=== PATIENT | female | born 1935 | race Caucasian/White ===

== ENCOUNTER → 2017-10-09 05:00 | Outpatient (REF) | payer MEDICARE, SELFPAY ==
[2017-10-09 08:35] LABS: Anion Gap 11 (5-15); BUN 26 mg/dL (7-18); BUN/Creat Ratio 21.3 RATIO (10-20); Calcium,Total 9.1 mg/dL (8.5-10.1); Chloride 106 mmol/L (98-107); Creatinine, Serum 1.22 mg/dL (0.55-1.02); EST Glomerular Filtration Rate 45 mL/min (>60); Est Glom Filt Rate - Afr Amer 55 mL/min (>60); Glucose 85 mg/dL (70-110); Potassium 4.1 mmol/L (3.5-5.1); Sodium Level 141 mmol/L (136-145)
== END ==
LOC: OLS.WHLCAR 05:00
PROVIDERS: Visit Provider Family Medicine
DX: I10 Essential (primary) hypertension (principal); D64.9 Anemia, unspecified
CPT/HCPCS: 36415; 80048

== ENCOUNTER → 2018-03-09 05:00 | Outpatient (REF) | payer MEDICARE, SELFPAY ==
[2018-03-09 08:50] LABS: AST(SGOT) 25 U/L (15-37); Alanine Aminotransfer ALT/SGPT 21 U/L (13-56); Albumin, Serum 3.7 g/dL (3.2-5.0); Alkaline Phosphatase 114 U/L (45-117); Anion Gap 8 (5-15); BUN 28 mg/dL (7-18); BUN/Creat Ratio 18.3 RATIO (10-20); Chloride 106 mmol/L (98-107); Creatinine, Serum 1.53 mg/dL (0.55-1.02); EST Glomerular Filtration Rate 35 mL/min (>60); Est Glom Filt Rate - Afr Amer 42 mL/min (>60); Globulin 3.6 g/dL (2.2-4.2); Glucose 89 mg/dL (74-106); Potassium 4.3 mmol/L (3.5-5.1); Protein, Total 7.3 g/dL (6.4-8.2); Sodium Level 141 mmol/L (136-145)
== END ==
LOC: OLS.WHLCAR 05:00
PROVIDERS: Visit Provider Family Medicine
DX: D64.9 Anemia, unspecified (principal); I10 Essential (primary) hypertension
CPT/HCPCS: 36415; 80053

== ENCOUNTER → 2018-04-08 05:00 | Outpatient (REF) | payer MEDICARE, SELFPAY ==
[2018-04-08 09:33] LABS: Anion Gap 8 (5-15); BUN 26 mg/dL (7-18); BUN/Creat Ratio 19.1 RATIO (10-20); Calcium,Total 9.2 mg/dL (8.5-10.1); Chloride 106 mmol/L (98-107); Creatinine, Serum 1.36 mg/dL (0.55-1.02); EST Glomerular Filtration Rate 40 mL/min (>60); Est Glom Filt Rate - Afr Amer 48 mL/min (>60); Glucose 92 mg/dL (74-106); Potassium 4.1 mmol/L (3.5-5.1); Sodium Level 140 mmol/L (136-145)
== END ==
LOC: OLS.WHLCAR 05:00
PROVIDERS: Visit Provider Family Medicine
DX: I10 Essential (primary) hypertension (principal); D64.9 Anemia, unspecified
CPT/HCPCS: 36415; 80048

== ENCOUNTER → 2018-10-09 05:00 | Outpatient (REF) | payer MEDICARE, SELFPAY ==
[2018-10-09 07:29] LABS: Anion Gap 12 (5-15); BUN 29 mg/dL (7-18); Calcium,Total 8.8 mg/dL (8.5-10.1); Chloride 107 mmol/L (98-107); Creatinine, Serum 1.45 mg/dL (0.55-1.02); EST Glomerular Filtration Rate 37 mL/min (>60); Est Glom Filt Rate - Afr Amer 45 mL/min (>60); Glucose 96 mg/dL (74-106); Potassium 4.3 mmol/L (3.5-5.1); Sodium Level 143 mmol/L (136-145)
== END ==
LOC: OLS.WHLCAR 05:00
PROVIDERS: Visit Provider Family Medicine
DX: D64.9 Anemia, unspecified (principal); I10 Essential (primary) hypertension
CPT/HCPCS: 36415; 80048

== ENCOUNTER 2019-03-07 07:24 | Emergency (ER) | payer MEDICARE, OTHER, MEDICAID, SELFPAY ==
[2019-03-07 07:25] VITALS: BP 191/101; PULSE 84; RESP 16; TEMP 37.3; O2SAT 97; BMI 24.1
--- NOTE | 2019-03-07 07:26 | RAD_ITS ---
STUDY: X-RAY - RIGHT KNEE REASON FOR EXAM: Female, 83 years old. Right knee pain TECHNIQUE: 3 view(s) of the knee. COMPARISON: None. FINDINGS: Normal visualized distal femur. Normal visualized proximal tibia and fibula. Normal proximal tibiofibular articulation. There is severe degenerative arthrosis of the medial femorotibial compartment with severe joint space narrowing. There is moderate degenerative arthrosis of the lateral femorotibial compartment with moderate joint space narrowing. There is severe degenerative arthrosis of the patellofemoral articulation. There is no demonstrated joint effusion. The soft tissue structures are unremarkable. RAD/Knee 3 Views IMPRESSION: Degenerative changes without acute findings Electronically Signed: Savage Humphries DO at 8:28 EDT Tel , Service support ,
--- NOTE | 2019-03-07 07:26 | ED.DCSUM_ITS ---
- ER Visit Summary Date of Service: 03/07/19 Chief Complaint: Knee pain, high blood pressure History of Present Illness: The patient is a 83 F with history of hypertension and chronic left knee pain secondary to [id number] arthritis presents with increasing knee pain. Patient states that the symptoms worsen this morning. States try to get out of bed and use the bathroom, but had significant pain in the knee. She denies any trauma. She denies any fevers or chills. She states she has been taking Tylenol with little improvement. She is never had surgery on her knee. She denies any history of immunosuppression. Physical Examination: Vital signs reviewed General: Well-nourished, well-developed Head: Normocephalic, atraumatic Eyes: Pupils equal and reactive, extraocular muscles intact Neck, supple, no lymphadenopathy Heart: Regular rate and rhythm Respiratory: No distress, clear bilaterally Abdomen: Soft, nontender, nondistended, no peritoneal signs Back: Nontender Extremities: Patient has small effusion of the right knee. She does guard against range of motion. Her extension is preserved. There is no erythema. Pulses in the lower extremity are normal. Compartments are soft. Skin: Normal color no rash Neuro: Alert and oriented, no focal or lateralizing deficits Test Results: [] Emergency Department Course and Treatment: The knee itself does not appear erythematous. There is a minimal effusion. Pulses are normal. Screening labs obtained were unremarkable. Patient was given analgesics with some improvement. X-rays show rather significant arthritis in the knee. I discussed options with the patient. She agreed with plan for arthrocentesis and injection. This was done under sterile technique. I did use a lateral approach as her medial joint space was also nonexistent on imaging. Patient was given a combination of 5 cc of bupivacaine and 40 mg of Kenalog injected intra-articularly. She did have some improvement of her pain. Within 10 minutes, she was able to ambulate with her walker. I defer the patient safe for discharge. She is already on analgesics. She will follow-up with orthopedics as needed. Treatment Plan: [] Disposition: Discharge Impression: 1. Acute exacerbation of right knee arthritis This note was generated with Learning Hyperdrive[employer] software. It may contain incorrect words, spelling, and punctuation that were not noted in review of the chart prior to signing ED Disposition - Plan for ED Patient: Disposition: Home or Assisted Living Instructions: Knee Effusion Referrals: Eric Lovett III, MD [Primary Care Provider] - Messi Hermosillo MD [STAFF PHYSICIAN] -
[2019-03-07] MEDS: Morphine 4 MG/ML Syringe IV (07:41)
[2019-03-07] MEDS: Ondansetron 4 MG/2 ML Vial IV (07:42)
[2019-03-07 07:47] LABS: Absolute Lymphocyte Count 1.47 X10^3/ul (0.83-4.51); Absolute Neutrophil Count 3.1 X10^3/uL (2.0-7.7); Basophil# 0.05 X10^3/uL; Eosinophil# 0.34 X10^3/uL; Eosinophils% 6.5 % (0-5); Hematocrit 40.1 % (37-47); Hemoglobin 13.3 g/dl (12.0-15.0); Lymphocyte # 1.47 X10^3/ul (4.0); Lymphocyte % 27.9 % (19-41); Mean Corp Hgb Conc 33.2 g/gl (32-36); Mean Corpuscular Hgb 30.9 pg (27.0-32.0); Mean Corpuscular Volume 93.3 fL (81-99); Mean Platelet Vol. 9.2 fl (6.2-12.0); Monocyte# 0.33 X10^3/uL; Monocyte% 6.3 % (0-10); Neutrophil # 3.06 X10^3/uL (2.7-7.7); Neutrophil % 58.1 % (47-70); Platelet Count 182 K/mm3 (150-450); RBC Distribution Width CV 13.2 % (11.6-14.6); RBC Distribution Width SD 44.3 fl (35.1-43.9); White Blood Count 5.3 K/mm3 (4.4-11.0)
[2019-03-07 07:53] LABS: POSITIVE COUNT NO; POSITIVE DIFFERENTIAL NO; POSITIVE MORPHOLOGY NO
[2019-03-07 07:57] LABS: Anion Gap 6 (5-15); BUN 26 mg/dL (7-18); BUN/Creat Ratio 16.6 RATIO (10-20); Calcium,Total 9.5 mg/dL (8.5-10.1); Chloride 107 mmol/L (98-107); Creatinine, Serum 1.57 mg/dL (0.55-1.02); EST Glomerular Filtration Rate 34 mL/min (>60); Est Glom Filt Rate - Afr Amer 41 mL/min (>60); Estimated Creatinine Clearance 26.31 ml/min; Glucose 100 mg/dL (74-106); Potassium 3.8 mmol/L (3.5-5.1); Sodium Level 139 mmol/L (136-145)
[2019-03-07] MEDS: Triamcinolone Acetonide 40 MG/ML Vial IM (09:13)
[2019-03-07 09:19] VITALS: BP 175/79; PULSE 57; RESP 16; O2SAT 95
== END 2019-03-07 09:50 | disposition home or self-care (01) ==
LOC: ED 08:34
PROVIDERS: Emergency Provider Emergency Medicine; Family Provider Family Medicine; PCP Family Medicine
DX: M17.11 Unilateral primary osteoarthritis, right knee (principal); G89.29 Other chronic pain; I10 Essential (primary) hypertension; Z79.899 Other long term (current) drug therapy
CPT/HCPCS: 20610; 73562; 80048; 85025; 96372; 96374; 96375; 99285; A4216; J2405

== ENCOUNTER → 2019-04-23 05:00 | Outpatient (REF) | payer MEDICARE, OTHER, MEDICAID, SELFPAY ==
[2019-04-23 08:27] LABS: Anion Gap 5 (5-15); BUN 18 mg/dL (7-18); Calcium,Total 8.8 mg/dL (8.5-10.1); Chloride 112 mmol/L (98-107); Creatinine, Serum 1.06 mg/dL (0.55-1.02); EST Glomerular Filtration Rate 53 mL/min (>60); Est Glom Filt Rate - Afr Amer 64 mL/min (>60); Glucose 89 mg/dL (74-106); Potassium 4.3 mmol/L (3.5-5.1); Sodium Level 138 mmol/L (136-145)
== END ==
LOC: OLS.WHLCAR 05:00
PROVIDERS: Visit Provider Family Medicine
DX: M19.011 Primary osteoarthritis, right shoulder (principal); M17.0 Bilateral primary osteoarthritis of knee; M51.17 Intervertebral disc disorders with radiculopathy, lumbosacral region; R01.1 Cardiac murmur, unspecified; I10 Essential (primary) hypertension
CPT/HCPCS: 36415; 80048

== ENCOUNTER → 2019-10-25 04:00 | Outpatient (REF) | payer MEDICARE, OTHER, MEDICAID, SELFPAY ==
[2019-10-25 09:55] LABS: Anion Gap 5 (5-15); BUN 23 mg/dL (7-18); BUN/Creat Ratio 18.9 RATIO (10-20); Calcium,Total 8.6 mg/dL (8.5-10.1); Chloride 109 mmol/L (98-107); Creatinine, Serum 1.22 mg/dL (0.55-1.02); EST Glomerular Filtration Rate 45 mL/min (>60); Est Glom Filt Rate - Afr Amer 54 mL/min (>60); Glucose 82 mg/dL (74-106); Potassium 3.6 mmol/L (3.5-5.1); Sodium Level 143 mmol/L (136-145)
== END ==
LOC: OLS.WHLCAR 04:00
PROVIDERS: PCP Family Medicine; Visit Provider Family Medicine
DX: I10 Essential (primary) hypertension (principal); M19.011 Primary osteoarthritis, right shoulder; M17.0 Bilateral primary osteoarthritis of knee; M51.17 Intervertebral disc disorders with radiculopathy, lumbosacral region; R01.1 Cardiac murmur, unspecified
CPT/HCPCS: 36415; 80048

== ENCOUNTER → 2019-10-30 15:50 | Outpatient (REF) | payer MEDICARE, OTHER, MEDICAID, SELFPAY | LOC: OLS.WHLCAR 15:50 | PROVIDERS: PCP Family Medicine; Visit Provider Family Medicine | DX: R19.7 Diarrhea, unspecified (principal); M19.011 Primary osteoarthritis, right shoulder; M17.0 Bilateral primary osteoarthritis of knee; M51.17 Intervertebral disc disorders with radiculopathy, lumbosacral region; R01.1 Cardiac murmur, unspecified | CPT/HCPCS: 83630; 87177; 87209; 87493; 87506 ==

== ENCOUNTER → 2020-04-24 04:00 | Outpatient (REF) | payer MEDICARE, OTHER, MEDICAID, SELFPAY ==
[2020-04-24 07:21] LABS: Anion Gap 6 (5-15); BUN 23 mg/dL (7-18); BUN/Creat Ratio 16.2 RATIO (10-20); Calcium,Total 9.2 mg/dL (8.5-10.1); Chloride 107 mmol/L (98-107); Creatinine, Serum 1.42 mg/dL (0.55-1.02); EST Glomerular Filtration Rate 38 mL/min (>60); Est Glom Filt Rate - Afr Amer 46 mL/min (>60); Glucose 93 mg/dL (74-106); Potassium 4.1 mmol/L (3.5-5.1); Sodium Level 138 mmol/L (136-145)
== END ==
LOC: OLS.WHLCAR 04:00
PROVIDERS: PCP Family Medicine; Visit Provider Family Medicine
DX: I10 Essential (primary) hypertension (principal); M19.011 Primary osteoarthritis, right shoulder; M17.0 Bilateral primary osteoarthritis of knee; M51.17 Intervertebral disc disorders with radiculopathy, lumbosacral region; R01.1 Cardiac murmur, unspecified
CPT/HCPCS: 36415; 80048

== ENCOUNTER → 2020-05-04 05:14 | Outpatient (REF) | payer MEDICARE, OTHER, MEDICAID, SELFPAY ==
[2020-05-04 08:46] LABS: Anion Gap 9 (5-15); BUN 26 mg/dL (7-18); BUN/Creat Ratio 16.2 RATIO (10-20); Chloride 101 mmol/L (98-107); EST Glomerular Filtration Rate 33 mL/min (>60); Est Glom Filt Rate - Afr Amer 40 mL/min (>60); Glucose 86 mg/dL (74-106); Sodium Level 136 mmol/L (136-145)
== END ==
LOC: OLS.WHLBEN 05:14
PROVIDERS: PCP Family Medicine; Referring Provider Family Medicine; Visit Provider Family Medicine
DX: I10 Essential (primary) hypertension (principal); M19.011 Primary osteoarthritis, right shoulder; M17.0 Bilateral primary osteoarthritis of knee; M51.17 Intervertebral disc disorders with radiculopathy, lumbosacral region; R01.1 Cardiac murmur, unspecified
CPT/HCPCS: 36415; 80048

== ENCOUNTER → 2020-08-04 05:00 | Outpatient (REF) | payer MEDICARE, OTHER, MEDICAID, SELFPAY ==
[2020-08-04 08:27] LABS: Anion Gap 6 (5-15); BUN 29 mg/dL (7-18); BUN/Creat Ratio 18.5 RATIO (10-20); Calcium,Total 8.9 mg/dL (8.5-10.1); Chloride 107 mmol/L (98-107); Creatinine, Serum 1.57 mg/dL (0.55-1.02); EST Glomerular Filtration Rate 34 mL/min (>60); Est Glom Filt Rate - Afr Amer 41 mL/min (>60); Glucose 83 mg/dL (74-106); Potassium 3.9 mmol/L (3.5-5.1); Sodium Level 140 mmol/L (136-145)
== END ==
LOC: OLS.WHLBEN 05:00
PROVIDERS: PCP Family Medicine; Referring Provider Family Medicine; Visit Provider Family Medicine
DX: I10 Essential (primary) hypertension (principal); M19.011 Primary osteoarthritis, right shoulder; M17.0 Bilateral primary osteoarthritis of knee; M51.17 Intervertebral disc disorders with radiculopathy, lumbosacral region; R01.1 Cardiac murmur, unspecified
CPT/HCPCS: 36415; 80048

== ENCOUNTER 2020-08-25 11:47 | Emergency (ER) | payer MEDICARE, OTHER, MEDICAID, SELFPAY ==
[2020-08-25 11:47] VITALS: BP 151/72; PULSE 75; RESP 16; TEMP 36.5; O2SAT 97; BMI 24.5
[2020-08-25 11:51] VITALS: BP 151/72; PULSE 76; RESP 13; TEMP 36.5; O2SAT 97
--- NOTE | 2020-08-25 12:12 | ED.VIS.GEN ---
History of Present Illness Chief Complaint: Nausea/Vomiting Onset: Today Current Severity: Mild Maximum Severity: Moderate Narrative: Patient presents from [facility] secondary to nausea, vomiting, and diarrhea. She had tested positive for Covid on August 08. She states she had nausea and mild cough. She felt like she was getting better until today when she developed vomiting and diarrhea. She denies fever. She denies abdominal pain. - Past Medical History (1) Arthritis Status: Chronic (2) Depression Status: Chronic Past Medical History - Allergies and Home Meds Allergies/Adverse Reactions: Allergies acetaminophen [From Darvocet-N] Allergy (Verified 08/25/20 13:12) Unknown amlodipine [From Norvasc] Allergy (Verified 08/25/20 13:12) Upset Stomach celecoxib [From Celebrex] Allergy (Verified 08/25/20 13:12) Unknown choline salicylate Allergy (Verified 08/25/20 13:12) Unknown hydrocodone [From Vicodin] Allergy (Verified 08/25/20 13:12) Unknown magnesium salicylate Allergy (Verified 08/25/20 13:12) Unknown naproxen [From Naprosyn] Allergy (Verified 08/25/20 13:12) Upset Stomach paroxetine [From Paxil] Allergy (Verified 08/25/20 13:12) Unknown propoxyphene [From Darvocet-N] Allergy (Verified 08/25/20 13:12) Unknown verapamil Allergy (Verified 08/25/20 13:12) Unknown Primary Care Physician: Eric Lovett III, MD [Primary Care Provider] - Prior records reviewed: Yes Lives: [facility] Smoking Status: Never smoker Review of Systems General: Denies: Chills, Fever Eyes: Denies: Visual changes - bilaterally Cardiovascular: Denies: Chest pain Respiratory: Denies: Dyspnea, Cough Gastrointestinal: Reports: Nausea, Vomiting, Diarrhea. Denies: Abdominal pain Genitourinary: Denies: Dysuria Musculoskeletal: Denies: Swelling, Extremity Pain Skin: Denies: Rash Hematologic: Denies: Easy bruising, Easy bleeding Allergy: Denies: Uticaria Physical Exam Vital Signs/Narrative: Vital Signs Temp Pulse Resp BP Pulse Ox 08/25/20 11:51 97.7 F L 76 13 151/72 H 97 08/25/20 11:47 97.7 F L 75 16 151/72 H 97 Inital Vital Signs reviewed: Yes General: Well nourished, Well developed Head: Normocephalic ENT: Moist mucous membranes Neck: Supple Cardiovascular: Regular rate, Regular rhythm Respiratory: No distress, CTA bilaterally Abdomen: Soft, Nontender, Normal bowel sounds Skin: Normal color Neurological: Alert, Oriented x3 Psychological: Normal affect Diagnostic/Tx/Re-eval Laboratory Results 08/25/20 08/25/20 08/25/20 12:45 12:45 13:45 WBC 11.7 H RBC 4.35 Hgb 13.4 Hct 40.6 MCV 93.3 MCH 30.8 MCHC 33.0 RDW Std Deviation 43.6 RDW Coeff of Clarissa 12.8 Plt Count 212 MPV 9.5 Immature Gran % (Auto) 0.400 Neut % (Auto) 82.9 H Lymph % (Auto) 9.8 L [place] % (Auto) 5.0 Eos % (Auto) 1.5 Baso % (Auto) 0.4 Absolute Neuts (auto) 9.7 H Absolute Lymphs (auto) 1.15 Nucleated RBC % 0 Sodium 137 Potassium 4.6 Chloride 105 Carbon Dioxide 26.0 Anion Gap 6 BUN 35 H Creatinine 1.67 H Estim Creat Clear Calc 21.48 Est GFR (MDRD) Af Amer 38 L Est GFR (MDRD) Non-Af 31 L BUN/Creatinine Ratio 21.0 H Glucose 110 H Calcium 9.6 Total Bilirubin 0.40 Direct Bilirubin 0.12 AST 26 ALT 25 Alkaline Phosphatase 139 H Total Protein 7.9 Albumin 3.9 Globulin 4.0 Urine Color Yellow Urine Clarity Clear Urine pH 5.0 Ur Specific Winston 1.015 Urine Protein 15 H Urine Glucose (UA) Normal Urine Ketones Negative Urine Occult Blood Negative Urine Nitrite Negative Urine Bilirubin Negative Urine Urobilinogen Normal Ur Leukocyte Esterase Negative Urine RBC 0 SEEN Urine WBC 0 SEEN Ur Squamous Epith Cells 0-5 SEEN Urine Bacteria RARE Urine Mucus RARE - Medical Decision Making Patient was given IV Zofran and does feel improved from a nausea standpoint. She states she still feels very cold and shaky. She be given a dose of Imodium. Her lab work at this time is unremarkable. Urine is clear. Patient does feel that she can care for herself at her assisted living center. It looks like on paperwork she had been prescribed Zofran and Imodium, however states she did not get that today. I will give her new prescriptions and we will call the facility to ensure they are able to help provide this for her. ED Disposition - Plan for ED Patient: Disposition: Home or Assisted Living Diagnosis: Gastroenteritis Instructions: ED Gastroenteritis, Viral (Adult) Prescriptions: Loperamide [Imodium] 2 mg PO Q6H PRN PRN #10 capsule PRN Reason: Diarrhea Ondansetron [Zofran Odt] 4 mg PO Q8H PRN PRN #10 tablet PRN Reason: Nausea Referrals: Eric Lovett III, MD [Primary Care Provider] - 3-5 Days if not improving
[2020-08-25 12:58] LABS: Absolute Lymphocyte Count 1.15 X10^3/uL (0.83-4.51); Absolute Neutrophil Count 9.7 X10^3/uL (2.0-7.7); Basophil# 0.05 X10^3/uL; Basophil% 0.4 % (0-1); Eosinophil# 0.18 X10^3/uL; Eosinophils% 1.5 % (0-5); Hematocrit 40.6 % (37-47); Hemoglobin 13.4 g/dL (12.0-15.0); Lymphocyte # 1.15 X10^3/ul (4.0); Lymphocyte % 9.8 % (19-41); Mean Corpuscular Hgb 30.8 pg (27.0-32.0); Mean Corpuscular Volume 93.3 fL (81-99); Mean Platelet Vol. 9.5 fl (6.2-12.0); Monocyte# 0.59 X10^3/uL; NRBC Flagged by Analyzer 0 % (0-5); Neutrophil # 9.67 X10^3/uL (2.7-7.7); Neutrophil % 82.9 % (47-70); Platelet Count 212 K/mm3 (150-450); RBC Distribution Width CV 12.8 % (11.6-14.6); RBC Distribution Width SD 43.6 fl (35.1-43.9); Red Blood Count 4.35 M/mm3 (4.2-5.4); White Blood Count 11.7 K/mm3 (4.4-11.0)
[2020-08-25] MEDS: Ondansetron 4 MG/2 ML Vial IV (12:59)
[2020-08-25 13:05] VITALS: BP 137/70; PULSE 69; RESP 16; TEMP 36.6; O2SAT 97
[2020-08-25 13:25] LABS: AST(SGOT) 26 U/L (15-37); Alanine Aminotransfer ALT/SGPT 25 U/L (13-56); Albumin, Serum 3.9 g/dL (3.2-5.0); Alkaline Phosphatase 139 U/L (45-117); Anion Gap 6 (5-15); BUN 35 mg/dL (7-18); Bilirubin, Direct 0.12 mg/dL (0.00-0.30); Calcium,Total 9.6 mg/dL (8.5-10.1); Chloride 105 mmol/L (98-107); Creatinine, Serum 1.67 mg/dL (0.55-1.02); EST Glomerular Filtration Rate 31 mL/min (>60); Est Glom Filt Rate - Afr Amer 38 mL/min (>60); Estimated Creatinine Clearance 21.48 ml/min; Glucose 110 mg/dL (74-106); Potassium 4.6 mmol/L (3.5-5.1); Protein, Total 7.9 g/dL (6.4-8.2); Sodium Level 137 mmol/L (136-145)
[2020-08-25 13:57] LABS: Red Blood Cells-Urine 0 SEEN /hpf (0-5); White Blood Cells 0 SEEN /hpf (0-5)
[2020-08-25 14:02] LABS: Color, Urine Yellow (Yellow); Glucose, Dipstick Normal (Normal); Ketone-Dipstick Negative (Negative); Leukocyte Esterase-Dipstick Negative /ul (Negative); Nitrite-Dipstick Negative (Negative); Occult Blood-Urine Negative /ul (Negative); Protein-Dipstick 15 mg/dl (Negative); Specific Gravity, Urine 1.015 (1.002-1.030); Urine Bilirubin Dipstick Negative (Negative); Urine Clarity Clear (Clear); Urine Urobilinogen Normal (Normal)
[2020-08-25 14:10] LABS: Bacteria RARE /hpf (None Seen); Mucous, Urine RARE /hpf (<or=2+); Squamous Epithelial Cells - UA 0-5 SEEN /hpf (5-10)
--- NOTE | 2020-08-25 15:06 | ED.RN ---
SPOKE TO SHYANN AT [facility], SHE STATES THEY ARE ABLE TO TAKE PT BACK, WILL GIVE MORE ASSISTANCE, WILL GIVE ZOFRAN AND DIARRHEA MEDS. NURSE STATES THEY DID NOT ATTEMPT PO ZOFRAN PT WAS VOMITING. NURSE VOICES UNDERSTANDING TO GIVE PT PO ZOFRAN DOSE SOON SHE RETURNS NAUSEA IS CURRENTLY CONTROLLED. WILL GET RX FOR ODT MEDS FILLED ROMANA.
[2020-08-25 15:10] VITALS: BP 156/67; PULSE 67; RESP 12; O2SAT 97
[2020-08-25 15:58] VITALS: BP 169/60; PULSE 91; RESP 17; O2SAT 95
== END 2020-08-25 15:59 | disposition home or self-care (01) ==
PROVIDERS: Emergency Provider Emergency Medicine; PCP Family Medicine
DX: K52.9 Noninfective gastroenteritis and colitis, unspecified (principal); M19.90 Unspecified osteoarthritis, unspecified site
CPT/HCPCS: 80048; 80076; 81001; 85025; 96374; 99285; J2405

== ENCOUNTER → 2020-11-02 05:00 | Outpatient (REF) | payer MEDICARE, OTHER, MEDICAID, SELFPAY ==
[2020-11-02 07:38] LABS: Anion Gap 6 (5-15); BUN 26 mg/dL (7-18); BUN/Creat Ratio 17.8 RATIO (10-20); Chloride 103 mmol/L (98-107); Creatinine, Serum 1.46 mg/dL (0.55-1.02); EST Glomerular Filtration Rate 36 mL/min (>60); Est Glom Filt Rate - Afr Amer 44 mL/min (>60); Glucose 85 mg/dL (74-106); Sodium Level 137 mmol/L (136-145)
== END ==
LOC: OLS.WHLTSB 05:00
PROVIDERS: PCP Family Medicine; Visit Provider Family Medicine
DX: I10 Essential (primary) hypertension (principal); M19.011 Primary osteoarthritis, right shoulder; M17.0 Bilateral primary osteoarthritis of knee; M51.17 Intervertebral disc disorders with radiculopathy, lumbosacral region; R01.1 Cardiac murmur, unspecified
CPT/HCPCS: 36415; 80048

== ENCOUNTER → 2021-03-21 15:13 | Outpatient (CLI) | payer MEDICARE, MEDICAID, OTHER, SELFPAY ==
[2021-03-21 16:59] LABS: Probe Check PASS; Specimen Processing Control PASS
== END ==
PROVIDERS: PCP Family Medicine; Referring Provider Family Medicine; Visit Provider Family Medicine
DX: Z03.818 Encounter for observation for suspected exposure to other biological agents ruled out (principal)
CPT/HCPCS: 87635; U0005; U0003

== ENCOUNTER → 2021-05-03 05:00 | Outpatient (REF) | payer MEDICARE, OTHER, MEDICAID, SELFPAY ==
[2021-05-03 08:25] LABS: Absolute Lymphocyte Count 1.93 X10^3/uL (0.83-4.51); Absolute Neutrophil Count 2.4 X10^3/uL (2.0-7.7); Basophil# 0.05 X10^3/uL; Basophil% 0.9 % (0-1); Eosinophil# 0.51 X10^3/uL; Eosinophils% 9.3 % (0-5); Hematocrit 31.7 % (37-47); Hemoglobin 10.4 g/dL (12.0-15.0); Lymphocyte # 1.93 X10^3/ul (0.83-4.51); Mean Corp Hgb Conc 32.8 g/dL (32-36); Mean Corpuscular Hgb 30.8 pg (27.0-32.0); Mean Corpuscular Volume 93.8 fL (81-99); Mean Platelet Vol. 9.6 fl (6.2-12.0); Monocyte# 0.58 X10^3/uL; Monocyte% 10.5 % (0-10); NRBC Flagged by Analyzer 0 % (0-5); Neutrophil # 2.42 X10^3/uL (2.7-7.7); Neutrophil % 43.9 % (47-70); Platelet Count 198 K/mm3 (150-450); RBC Distribution Width CV 12.6 % (11.6-14.6); RBC Distribution Width SD 43.4 fl (35.1-43.9); Red Blood Count 3.38 M/mm3 (4.2-5.4); White Blood Count 5.5 K/mm3 (4.4-11.0)
[2021-05-03 08:47] LABS: Anion Gap 8 (5-15); BUN 34 mg/dL (7-18); BUN/Creat Ratio 21.4 RATIO (10-20); Calcium,Total 8.9 mg/dL (8.5-10.1); Chloride 103 mmol/L (98-107); Creatinine, Serum 1.59 mg/dL (0.55-1.02); EST Glomerular Filtration Rate 33 mL/min (>60); Est Glom Filt Rate - Afr Amer 40 mL/min (>60); Glucose 86 mg/dL (74-106); Potassium 4.1 mmol/L (3.5-5.1); Sodium Level 137 mmol/L (136-145)
== END ==
LOC: OLS.WHLTSB 05:00
PROVIDERS: PCP Family Medicine; Visit Provider Family Medicine
DX: I10 Essential (primary) hypertension (principal); D64.9 Anemia, unspecified; M19.011 Primary osteoarthritis, right shoulder; M17.0 Bilateral primary osteoarthritis of knee; M51.17 Intervertebral disc disorders with radiculopathy, lumbosacral region; R01.1 Cardiac murmur, unspecified
CPT/HCPCS: 36415; 80048; 85025

== ENCOUNTER 2021-11-01 04:00 | Outpatient (REF) | payer MEDICARE, OTHER, SELFPAY ==
[2021-11-01 08:34] LABS: Anion Gap 7 (5-15); BUN 31 mg/dL (7-18); BUN/Creat Ratio 20.9 RATIO (10-20); Calcium,Total 8.7 mg/dL (8.5-10.1); Chloride 105 mmol/L (98-107); Creatinine, Serum 1.48 mg/dL (0.55-1.02); EST Glomerular Filtration Rate 36 mL/min (>60); Est Glom Filt Rate - Afr Amer 43 mL/min (>60); Glucose 84 mg/dL (74-106); Potassium 4.3 mmol/L (3.5-5.1); Sodium Level 138 mmol/L (136-145)
== END 2021-11-01 23:59 | disposition home or self-care (01) ==
LOC: OLS.WHLTSB 04:00
PROVIDERS: Visit Provider Family Medicine
DX: I10 Essential (primary) hypertension (principal); M15.9 Polyosteoarthritis, unspecified; M19.011 Primary osteoarthritis, right shoulder; M17.0 Bilateral primary osteoarthritis of knee; M51.17 Intervertebral disc disorders with radiculopathy, lumbosacral region; R01.1 Cardiac murmur, unspecified
CPT/HCPCS: 36415; 80048

== ENCOUNTER → 2022-05-02 | Outpatient (REF) | payer MEDICARE, OTHER, SELFPAY ==
[2022-05-02 08:21] LABS: Absolute Lymphocyte Count 1.68 X10^3/uL (0.83-4.51); Absolute Neutrophil Count 2.5 X10^3/uL (2.0-7.7); Basophil# 0.04 X10^3/uL; Basophil% 0.8 % (0-1); Eosinophil# 0.17 X10^3/uL; Eosinophils% 3.4 % (0-5); Hematocrit 33.2 % (37-47); Hemoglobin 11.1 g/dL (12.0-15.0); Lymphocyte # 1.68 X10^3/ul (0.83-4.51); Mean Corp Hgb Conc 33.4 g/dL (32-36); Mean Corpuscular Hgb 30.9 pg (27.0-32.0); Mean Corpuscular Volume 92.5 fL (81-99); Mean Platelet Vol. 9.2 fl (6.2-12.0); Monocyte# 0.51 X10^3/uL; Monocyte% 10.3 % (0-10); NRBC Flagged by Analyzer 0 % (0-5); Neutrophil # 2.53 X10^3/uL (2.7-7.7); Neutrophil % 51.3 % (47-70); Platelet Count 198 K/mm3 (150-450); RBC Distribution Width CV 12.2 % (11.6-14.6); RBC Distribution Width SD 41.7 fl (35.1-43.9); Red Blood Count 3.59 M/mm3 (4.2-5.4); White Blood Count 4.9 K/mm3 (4.4-11.0)
[2022-05-02 08:35] LABS: Anion Gap 5 (5-15); BUN 30 mg/dL (7-18); BUN/Creat Ratio 23.1 RATIO (10-20); Calcium,Total 9.3 mg/dL (8.5-10.1); Chloride 106 mmol/L (98-107); EST Glomerular Filtration Rate 41 mL/min (>60); Est Glom Filt Rate - Afr Amer 50 mL/min (>60); Glucose 86 mg/dL (74-106); Potassium 4.3 mmol/L (3.5-5.1); Sodium Level 137 mmol/L (136-145)
== END ==
LOC: OLS.WHLTSB 05:00
PROVIDERS: Visit Provider Family Medicine
DX: D64.9 Anemia, unspecified (principal); M15.9 Polyosteoarthritis, unspecified; M19.011 Primary osteoarthritis, right shoulder; M17.0 Bilateral primary osteoarthritis of knee; M51.17 Intervertebral disc disorders with radiculopathy, lumbosacral region; R01.1 Cardiac murmur, unspecified; I10 Essential (primary) hypertension
CPT/HCPCS: 36415; 80048; 85025

== ENCOUNTER → 2022-10-31 | Outpatient (REF) | payer MEDICARE, OTHER, MEDICAID, SELFPAY ==
[2022-10-31 08:55] LABS: Anion Gap 9 (5-15); BUN 34 mg/dL (7-18); BUN/Creat Ratio 22.5 RATIO (10-20); Calcium,Total 9.3 mg/dL (8.5-10.1); Chloride 101 mmol/L (98-107); Creatinine, Serum 1.51 mg/dL (0.55-1.02); EST Glomerular Filtration Rate 35 mL/min (>60); Est Glom Filt Rate - Afr Amer 42 mL/min (>60); Glucose 92 mg/dL (74-106); Potassium 4.3 mmol/L (3.5-5.1); Sodium Level 134 mmol/L (136-145)
== END ==
LOC: OLS.WHLTSB 05:00
PROVIDERS: PCP Internal Medicine; Visit Provider Internal Medicine
DX: I10 Essential (primary) hypertension (principal); M15.9 Polyosteoarthritis, unspecified; M19.011 Primary osteoarthritis, right shoulder; M17.0 Bilateral primary osteoarthritis of knee; M51.17 Intervertebral disc disorders with radiculopathy, lumbosacral region; R01.1 Cardiac murmur, unspecified
CPT/HCPCS: 36415; 80048

== ENCOUNTER 2022-11-25 10:51 | Day surgery (SDC) | payer MEDICARE, MEDICAID, SELFPAY ==
[2022-11-25 11:28] VITALS: BP 186/91; PULSE 78; RESP 16; TEMP 36.8; O2SAT 97; BMI 23.2
--- NOTE | 2022-11-25 11:30 | RAD_ITS ---
PROCEDURE: Caudal block. DATE OF EXAMINATION: November 25, 2022. INDICATION: Female, 87 years old. Low back pain. FLUOROSCOPY TIME (if supplied): (4 seconds) minutes/seconds. 2 images were submitted. RADIATION DOSAGE (If Supplied By Facility): ( 1.97 ) mGycm RAD/Fluor Guidance for Spine Inj IMPRESSION: Intraoperative imaging provided for caudal block. Electronically Signed: Demarco Ennis MD at 13:39 EDT ,
[2022-11-25] MEDS: Lactated Ringers 1,000 ML 15 ML IV (11:32)
[2022-11-25] MEDS: 0.9% Normal Saline (Pres. free 10 ML Vial (12:00)
[2022-11-25] MEDS: MethylPREDNISolone Acetate 80 MG/ML Vial (12:00)
[2022-11-25] MEDS: Lidocaine 1% (5 ml sdv) 5 ML Vial (12:00)
--- NOTE | 2022-11-25 12:03 | OP.PCM_ITS ---
Report of Operation Date of Procedure: 11/25/22 Pre-Operative Diagnosis: Lumbosacral radiculopathy, lumbosacral degenerative di sc disease, lumbosacral spinal stenosis Post-Operative Diagnosis: Lumbosacral radiculopathy, lumbosacral degenerative disc disease, lumbosacral spinal stenosis Surgery/Procedure Performed:: Diagnostic/therapeutic caudal epidural steroid injection under fluoroscopic guidance Type of Anesthesia: MAC Estimated Blood Loss (mL): Minimal Description of Procedure: DESCRIPTION OF PROCEDURE: History and physical of today was reviewed. Risks and benefits of the procedure were explained. The patient understood and agreed to proceed. Informed consent was obtained. IV inserted per routine protocol. The patient was taken to the operating room and placed in the prone position with a pillow positioned underneath the abdomen. The lower back and tailbone area was prepped and draped in a sterile fashion using iodine x3. Under fluoroscopy guidance on a lateral view, the caudal space was identified. The skin and subcutaneous tissue was anesthetized with approximately 3 mL of 1% lidocaine using a 25-gauge regular needle. Under direct visualization with fluoroscopy, using a 22-gauge 3-1/2-inch spinal needle, the needle was advanced via the skin through the sacral hiatus. The tip of the needle was passed through the sacrococcygeal ligament and advanced to approximately S4 area. After negative aspiration of blood or CSF, a total of 3 mL of contrast was injected to confirm correct placement of the needle as well as cephalad spread. The spread was followed to approximately L5 area. After confirmation on AP as well as lateral view and repeated negative aspiration, a total of 15 mL of preservative-free 0.125% Marcaine with 80 mg of Depo-Medrol was injected easily. The needle was then removed intact. The patient experienced no sign or symptoms of intrathecal or intravascular injection. The patient experienced no paresthesia. The procedure was completed without any apparent difficulty or any complications. The patient appeared to tolerate it well. ASSESSMENT AND PLAN: This is a 87-year-old female with lumbosacral radiculopathy, lumbosacral degenerative disc disease, lumbosacral spinal stenosis status post diagnostic/therapeutic caudal epidural steroid injection, patient will continue her current medications, patient will follow in approximately 2 weeks for reevaluation. Complications None
[2022-11-25 12:07] VITALS: BP 100/41; BP 186/91; PULSE 74; RESP 16; TEMP 36.1; O2SAT 98
[2022-11-25 12:15] VITALS: BP 113/66; BP 186/91; PULSE 73; RESP 16; O2SAT 98
[2022-11-25 12:22] VITALS: BP 155/140; BP 186/91; PULSE 73; RESP 16; O2SAT 97
[2022-11-25 12:25] VITALS: BP 152/76; BP 186/91; PULSE 74; RESP 16; TEMP 36.9; O2SAT 97
--- NOTE | 2022-11-25 12:51 | SUR.PHASEII ---
THIS NURSE CALLED REPORT TO RACHID PT NURSE AT [facility], PT TRANSPORT WAS CALLED [phone] AND D/C INSTRUCTIONS WERE SENT WITH VALE BACK TO [facility].
[2022-11-25 12:53] VITALS: BP 186/91
== END 2022-11-25 13:10 | disposition home or self-care (01) ==
LOC: SDC 10:55 → AC 10:57
PROVIDERS: PCP Internal Medicine; Referring Provider Anesthesiology Pain Medicine; Visit Provider Anesthesiology Pain Medicine
PROC: 3E0S3BZ Introduction of Anesthetic Agent into Epidural Space, Percutaneous Approach (ICD-10-PCS; CPT 62282; principal; 2022-11-25 12:25)
DX: M51.17 Intervertebral disc disorders with radiculopathy, lumbosacral region (principal); M48.07 Spinal stenosis, lumbosacral region; F32.A Depression, unspecified; K21.9 Gastro-esophageal reflux disease without esophagitis; I10 Essential (primary) hypertension; Z79.899 Other long term (current) drug therapy
CPT/HCPCS: 62323; 01992; 64483; 77003; J7120; J3490

== ENCOUNTER → 2023-05-01 | Outpatient (REF) | payer MEDICARE, OTHER, MEDICAID, SELFPAY ==
[2023-05-01 10:23] LABS: Absolute Lymphocyte Count 1.47 X10^3/uL (0.83-4.51); Absolute Neutrophil Count 1.8 X10^3/uL (2.0-7.7); Basophil# 0.05 X10^3/uL; Basophil% 1.2 % (0-1); Eosinophil# 0.16 X10^3/uL; Hematocrit 31.9 % (37-47); Lymphocyte # 1.47 X10^3/ul (0.83-4.51); Lymphocyte % 36.5 % (19-41); Mean Corp Hgb Conc 31.3 g/dL (32-36); Mean Corpuscular Hgb 31.8 pg (27.0-32.0); Mean Corpuscular Volume 101.6 fL (81-99); Mean Platelet Vol. 9.3 fl (6.2-12.0); Monocyte# 0.58 X10^3/uL; Monocyte% 14.4 % (0-10); NRBC Flagged by Analyzer 0 % (0-5); Neutrophil # 1.76 X10^3/uL (2.7-7.7); Neutrophil % 43.7 % (47-70); Platelet Count 190 K/mm3 (150-450); RBC Distribution Width CV 12.1 % (11.6-14.6); RBC Distribution Width SD 45.6 fl (35.1-43.9); Red Blood Count 3.14 M/mm3 (4.2-5.4)
[2023-05-01 10:25] LABS: Anion Gap 5 (5-15); BUN 30 mg/dL (7-18); BUN/Creat Ratio 21.3 RATIO (10-20); Calcium,Total 9.1 mg/dL (8.5-10.1); Chloride 108 mmol/L (98-107); Creatinine, Serum 1.41 mg/dL (0.55-1.02); EST Glomerular Filtration Rate 38 mL/min (>60); Est Glom Filt Rate - Afr Amer 46 mL/min (>60); Glucose 88 mg/dL (74-106); Potassium 4.1 mmol/L (3.5-5.1); Sodium Level 138 mmol/L (136-145)
== END ==
LOC: OLS.WHLTSB 05:00
PROVIDERS: PCP Internal Medicine; Visit Provider Internal Medicine
DX: I10 Essential (primary) hypertension (principal)
CPT/HCPCS: 36415; 80048; 85025

== ENCOUNTER → 2023-10-30 | Outpatient (REF) | payer MEDICARE, OTHER, MEDICAID, SELFPAY ==
--- OUTSIDE RECORDS SUMMARY | 2023-10-30 05:06 | XMS RPT_ITS | CCD ---
Author Name Unknown Address [facility] [place] [address] Organization [facility] Results Test Name Value Interpretation Reference Range Facil ity Summary Purpose Family History No Family History Records Found Advance Directives No Advanced Directives Records Found Additional Source Comments INFORMATION SOURCE (unrecogn ized section and content) FOR RECORDS PERTAINING TO PATIENTS WHO ARE OR HAVE BEEN ENROLLED IN A CHEMICAL DEPENDENCY/SUBSTANCEABUSE PROGRAM, SOME INFORMATION MAY BE OMITTED. This clinical summary was aggregated from multiple sources. Caution should be exercised in using it in the provision of clinical care. This summary normalizes information from multiple sources, and as a consequence, information in this document may materially change the coding, format and clinical context of patient data. In addition, data may be omitted in some cases. CLINICAL DECISIONS SHOULD BE BASED ON THE PRIMARY CLINICAL RECORDS. [employer] provides no warranty or guarantee of the accuracy or completeness of information in this document.
[2023-10-30 08:46] LABS: Anion Gap 4 (5-15); BUN 41 mg/dL (7-18); BUN/Creat Ratio 26.8 RATIO (10-20); Calcium,Total 9.1 mg/dL (8.5-10.1); Chloride 110 mmol/L (98-107); Creatinine, Serum 1.53 mg/dL (0.55-1.02); EST Glomerular Filtration Rate 34 mL/min (>60); Est Glom Filt Rate - Afr Amer 41 mL/min (>60); Glucose 93 mg/dL (74-106); Potassium 4.5 mmol/L (3.5-5.1); Sodium Level 139 mmol/L (136-145)
== END ==
LOC: OLS.WHLTSB 05:00
PROVIDERS: PCP Internal Medicine; Visit Provider Internal Medicine
DX: I10 Essential (primary) hypertension (principal); M15.9 Polyosteoarthritis, unspecified; M19.011 Primary osteoarthritis, right shoulder
CPT/HCPCS: 36415; 80048

== ENCOUNTER → 2023-11-10 | Outpatient (REF) | payer MEDICARE, OTHER, MEDICAID, SELFPAY ==
[2023-11-10 07:32] LABS: Anion Gap 6 (5-15); BUN 44 mg/dL (7-18); BUN/Creat Ratio 25.9 RATIO (10-20); Calcium,Total 9.4 mg/dL (8.5-10.1); Chloride 108 mmol/L (98-107); EST Glomerular Filtration Rate 30 mL/min (>60); Est Glom Filt Rate - Afr Amer 37 mL/min (>60); Glucose 89 mg/dL (74-106); Potassium 4.2 mmol/L (3.5-5.1); Sodium Level 138 mmol/L (136-145)
== END ==
LOC: OLS.WHLTSB 05:00
PROVIDERS: PCP Internal Medicine; Visit Provider Internal Medicine
DX: I10 Essential (primary) hypertension (principal)
CPT/HCPCS: 36415; 80048

== ENCOUNTER 2024-01-26 09:38 | Day surgery (SDC) | payer MEDICARE, MEDICAID, SELFPAY ==
[2024-01-26 10:12] VITALS: BP 187/72; PULSE 77; RESP 16; TEMP 37.2; O2SAT 97
[2024-01-26] MEDS: Lactated Ringers 1,000 ML 15 ML IV (10:18)
--- NOTE | 2024-01-26 11:11 | RAD_ITS ---
PROCEDURE: Fluoroscopy in operating room. DATE OF EXAMINATION: INDICATION: Female, 88 years old. Low back pain, pelvic pain. PHYSICIAN: FLUOROSCOPY TIME (if supplied): (0:04) minutes/seconds Technique: 4 seconds of fluoroscopy of the sacrum was utilized operating room during epidural steroid injection and a single image is similar for interpretation. RAD/Fluor Guidance for Spine Inj IMPRESSION: Fluoroscopy during epidural steroid injection. Electronically Signed: Thomas Ruiz MD at 19:07 EDT ,
[2024-01-26] MEDS: MethylPREDNISolone Acetate 80 MG/ML Vial (11:19)
[2024-01-26] MEDS: Lidocaine 1% (5 ml sdv) 5 ML Vial (11:19)
[2024-01-26] MEDS: 0.9% Normal Saline (Pres. free 10 ML Vial (11:19)
[2024-01-26 11:26] VITALS: BP 138/57; BP 187/72; PULSE 66; RESP 16; TEMP 36.3; O2SAT 96
--- NOTE | 2024-01-26 11:26 | OP.PCM_ITS ---
Report of Operation Date of Procedure: 01/26/24 Pre-Operative Diagnosis: Lumbosacral radiculopathy, lumbosacral degenerative di sc disease, lumbosacral spinal stenosis Post-Operative Diagnosis: Lumbosacral radiculopathy, lumbosacral degenerative disc disease, lumbosacral spinal stenosis Surgery/Procedure Performed:: Diagnostic/therapeutic caudal epidural steroid injection under fluoroscopic guidance Type of Anesthesia: MAC Estimated Blood Loss (mL): Minimal Description of Procedure: DESCRIPTION OF PROCEDURE: History and physical of today was reviewed. Risks and benefits of the procedure were explained. The patient understood and agreed to proceed. Informed consent was obtained. IV inserted per routine protocol. The patient was taken to the operating room and placed in the prone position with a pillow positioned underneath the abdomen. The lower back and tailbone area was prepped and draped in a sterile fashion using iodine x3. Under fluoroscopy guidance on a lateral view, the caudal space was identified. The skin and subcutaneous tissue was anesthetized with approximately 3 mL of 1% lidocaine using a 25-gauge regular needle. Under direct visualization with fluoroscopy, using a 22-gauge 3-1/2-inch spinal needle, the needle was advanced via the skin through the sacral hiatus. The tip of the needle was passed through the sacrococcygeal ligament and advanced to approximately S4 area. After negative aspiration of blood or CSF, a total of 3 mL of contrast was injected to confirm correct placement of the needle as well as cephalad spread. The spread was followed to approximately L5 area. After confirmation on AP as well as lateral view and repeated negative aspiration, a total of 15 mL of preservative-free 0.125% Marcaine with 80 mg of Depo-Medrol was injected easily. The needle was then removed intact. The patient experienced no sign or symptoms of intrathecal or intravascular injection. The patient experienced no paresthesia. The procedure was completed without any apparent difficulty or any complications. The patient appeared to tolerate it well. ASSESSMENT AND PLAN: This is an 84-year-old female with lumbosacral radiculopathy, lumbosacral degenerative disc disease, lumbosacral spinal stenosis status post diagnostic/therapeutic caudal epidural steroid injection, patient will continue her current medications, patient will follow in approximately 2 weeks for reevaluation. Complications None
[2024-01-26 11:30] VITALS: BP 127/60; BP 187/72; PULSE 69; RESP 16; O2SAT 97
[2024-01-26 11:35] VITALS: BP 122/72; BP 187/72; PULSE 65; RESP 16; O2SAT 95
[2024-01-26 11:42] VITALS: BP 133/56; BP 187/72; PULSE 65; RESP 16; TEMP 36.3; O2SAT 96
[2024-01-26 12:00] VITALS: BP 187/72
== END 2024-01-26 12:22 | disposition home or self-care (01) ==
LOC: SDC 09:44 → AC 09:48
PROVIDERS: PCP Internal Medicine; Referring Provider Anesthesiology Pain Medicine; Visit Provider Anesthesiology Pain Medicine
PROC: 3E0S3BZ Introduction of Anesthetic Agent into Epidural Space, Percutaneous Approach (ICD-10-PCS; CPT 62282; principal; 2024-01-26 11:25)
DX: M51.17 Intervertebral disc disorders with radiculopathy, lumbosacral region (principal); M48.07 Spinal stenosis, lumbosacral region; M47.817 Spondylosis without myelopathy or radiculopathy, lumbosacral region; M51.37 Other intervertebral disc degeneration, lumbosacral region; M46.96 Unspecified inflammatory spondylopathy, lumbar region; Z79.899 Other long term (current) drug therapy
CPT/HCPCS: 62323; 01992; 64483; 77003; J7120; J3490

== ENCOUNTER → 2024-04-29 05:00 | Outpatient (REF) | payer MEDICARE, OTHER, MEDICAID, SELFPAY ==
[2024-04-29 08:09] LABS: Absolute Lymphocyte Count 1.56 X10^3/uL (0.83-4.51); Absolute Neutrophil Count 3.1 X10^3/uL (2.0-7.7); Basophil# 0.03 X10^3/uL; Basophil% 0.5 % (0-1); Eosinophil# 0.31 X10^3/uL; Eosinophils% 5.5 % (0-5); Hematocrit 31.7 % (37-47); Hemoglobin 10.1 g/dL (12.0-15.0); Lymphocyte # 1.56 X10^3/ul (0.83-4.51); Lymphocyte % 27.9 % (19-41); Mean Corp Hgb Conc 31.9 g/dL (32-36); Mean Corpuscular Hgb 31.5 pg (27.0-32.0); Mean Corpuscular Volume 98.8 fL (81-99); Mean Platelet Vol. 9.7 fl (6.2-12.0); Monocyte# 0.63 X10^3/uL; Monocyte% 11.3 % (0-10); NRBC Flagged by Analyzer 0 % (0-5); Neutrophil # 3.05 X10^3/uL (2.7-7.7); Neutrophil % 54.4 % (47-70); Platelet Count 212 K/mm3 (150-450); RBC Distribution Width CV 12.2 % (11.6-14.6); RBC Distribution Width SD 44.1 fl (35.1-43.9); Red Blood Count 3.21 M/mm3 (4.2-5.4); White Blood Count 5.6 K/mm3 (4.4-11.0)
[2024-04-29 08:19] LABS: Anion Gap 7 (5-15); BUN 39 mg/dL (7-18); BUN/Creat Ratio 28.1 RATIO (10-20); Calcium,Total 9.3 mg/dL (8.5-10.1); Chloride 107 mmol/L (98-107); Creatinine, Serum 1.39 mg/dL (0.55-1.02); EST Glomerular Filtration Rate 38 mL/min (>60); Est Glom Filt Rate - Afr Amer 46 mL/min (>60); Glucose 100 mg/dL (74-106); Potassium 4.5 mmol/L (3.5-5.1); Sodium Level 138 mmol/L (136-145)
== END ==
LOC: OLS.WHLTSB 05:00
PROVIDERS: PCP Internal Medicine; Visit Provider Internal Medicine
DX: I10 Essential (primary) hypertension (principal)
CPT/HCPCS: 36415; 80048; 85025

== ENCOUNTER 2024-06-28 11:08 | Day surgery (SDC) | payer MEDICARE, MEDICAID, SELFPAY ==
[2024-06-28] VITALS (7 sets, daily range): BP systolic 80–162; BP diastolic 52–73; PULSE 16–80; RESP 16–18; TEMP 36.2–36.4; O2SAT 93–97; BMI 21.2
--- NOTE | 2024-06-28 11:16 | PRE.ANES_ITS ---
ASA Classification* ASA Classification ASA Classification: 3 Assessment & Plan Anesthesia* Anesthesia Assessment Anesthesia Assessment: Discussed sedation and/or anesthesia options, risks, benefits, and alternatives with patient/parents/legal guardian/POA. Questions invited. The patient/parents/legal guardian/POA seems to understand and agrees to proceed with anesthesia plan. Reviewed the physical assessment, medical history, allergy history and patient home medications list prior to surgery/procedure/anesthetic and documented any changes. Performed airway and anesthesia risk assessments. Anesthesia Type Anesthesia Type: MAC Anesthesia Focused Assessment* Airway Assessment Mouth opens: >3 cm Mallampati Score: II Focused Labs Anesthesia Preop lab: CBC WBC 5.6 K/mm3 (4.4-11.0) 04/29/24 04:55 RBC 3.21 M/mm3 (4.2-5.4) L 04/29/24 04:55 Hgb 10.1 g/dL (12.0-15.0) L 04/29/24 04:55 Hct 31.7 % (37-47) L 04/29/24 04:55 Plt Count 212 K/mm3 (150-450) 04/29/24 04:55 CHEMISTRY Potassium 4.5 mmol/L (3.5-5.1) 04/29/24 04:55 Sodium 138 mmol/L (136-145) 04/29/24 04:55 BUN 39 mg/dL (7-18) H 04/29/24 04:55 Creatinine 1.39 mg/dL (0.55-1.02) H 04/29/24 04:55 Glucose 100 mg/dL (74-106) 04/29/24 04:55 TSH 0.93 uIU/mL (0.358-3.74) 04/22/16 06:49 COAG Pre-Assessment Diagnosis/Proposed Procedure Planned Operative Procedure(s): Caudal SISI Anesthesia History Anesthesia History - pharmacy clinical coordinator: Anesthesia History - pharmacy clinical coordinator Hx Hospitalization No 01/21/24 13:50 Any Problems With Anesthesia No 01/21/24 13:50 Cholinesterase deficiency No 01/21/24 13:50 You/Your Family Experience No 01/21/24 13:50 fever (hyperthermia) with Relationship Recent Exposure to Contagious No 01/26/24 10:12 Disease Does patient have nerve No 01/21/24 13:50 stimulator Patient instructed to have device shut off --Does patient have Pacemaker or ICD? When Was Last Pacemaker Check QUESTION #4 FULL TEXT: You/Your Family Experience fever (hyperthermia) with Anesthesia Last Oral Intake Last Oral intake: Last Oral Intake NPO since Meds taken in AM with sips of water? Meds patient instructed to take am of surgery PONV PONV - pharmacy clinical coordinator: PONV - pharmacy clinical coordinator Female HX of Motion Sickness HX of N/V After Surgery Non-Smoker Duration of Surgery greater than 60 minutes Number of Risk Factors PONV Score Height & Weight Height & Weight: Anesthesia: Height & Weight Height 5 ft 3 in 01/26/24 10:12 Respiratory Assessment Respiratory Assessment - pharmacy clinical coordinator: Respiratory Tract Infection Hx - pharmacy clinical coordinator Hx Respiratory Tract Infection No 01/21/24 13:50 STOP Sleep Apnea STOP Sleep Apnea - pharmacy clinical coordinator: STOP Sleep Apnea - pharmacy clinical coordinator Hx Hypertension Yes 01/21/24 13:50 Hx Sleep Apnea No 01/26/24 11:42 CPAP No 11/25/22 12:07 BIPAP Do you snore loudly (louder than talking or can be heard Do you often feel tired/ fatigued/ sleepy during daytime? Has anyone observed you stop breathing during sleep? STOP Results QUESTION #5 FULL TEXT : Do you snore loudly (louder than talking or can be heard through closed doors)? 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 Specify any problems Hx of Preganancy in last 3 Months Nurse Filling Out Transfusion & Questions: Date: Time: Patient unable to answer at this time (ie. confused, unrespo /Reproduction History /Reproductive History - pharmacy clinical coordinator: /Reproductive Hx- pharmacy clinical coordinator Hx Now Gestational Age (in weeks): EDC: Hx Hx Para Hx Section SAB No 01/21/24 13:50 PFSH Medical History Redness of skin Walker as ambulation aid Heartburn Shortness of breath on exertion History of edema Loss of hearing Wears glasses Wears partial dentures Post-menopausal Depression Anxiety Uses wheelchair Arthritis Anemia Back pain Gastric reflux Non-smoker History of pain when walking Hypertension History of irregular heartbeat Lives in jail Pain Osteoarthritis of left knee Home Medications ?Medication ?Instructions ?Recorded ?Last Taken ?Type calcium carbonate-vitamin D3 600 1 ea PO DAILY 03/07/19 01/25/24 History mg-125 unit tablet gabapentin 300 mg capsule 300 mg PO BID 03/07/19 01/26/24 History labetalol 100 mg tablet 100 mg PO BID 03/07/19 01/26/24 History lisinopril 10 mg tablet 5 mg PO QHS 03/07/19 01/25/24 History omeprazole 20 mg capsule,delayed 20 mg PO DAILY 03/07/19 01/26/24 History release hydrochlorothiazide 12.5 mg tablet 12.5 mg PO DAILY 08/25/20 01/25/24 History acetaminophen 500 mg tablet 1,000 mg PO TID 11/21/22 01/26/24 History oxycodone 5 mg capsule 5 mg PO TID 11/21/22 01/25/24 History polyethylene glycol 3350 17 gram 17 g PO DAILY PRN PRN constipation 11/21/22 01/25/24 History oral powder packet (Miralax) diclofenac sodium 1 % topical gel 4 g topical Q4H PRN PRN pain 01/21/24 01/25/24 History latanoprost 0.005 % eye drops 1 drp EACH EYE QPM 01/21/24 01/25/24 History lisinopril 20 mg tablet 20 mg PO DAILY 01/21/24 01/26/24 History loperamide 2 mg tablet 2 mg PO 4X/DAY PRN loose stool 01/21/24 01/25/24 History (Anti-Diarrheal (loperamide)) Allergy/AdvReac Type Severity Reaction Status Date / Time acetaminophen (From Allergy Unknown Verified 01/26/24 10:10 Darvocet-N) amlodipine (From Norvasc) Allergy Upset Verified 01/26/24 10:10 Stomach celecoxib (From Celebrex) Allergy Unknown Verified 01/26/24 10:10 choline salicylate Allergy Unknown Verified 01/26/24 10:10 hydrocodone (From Vicodin) Allergy Unknown Verified 01/26/24 10:10 magnesium salicylate Allergy Unknown Verified 01/26/24 10:10 naproxen (From Naprosyn) Allergy Upset Verified 01/26/24 10:10 Stomach paroxetine (From Paxil) Allergy Unknown Verified 01/26/24 10:10 propoxyphene (From Allergy Unknown Verified 01/26/24 10:10 Darvocet-N) verapamil Allergy Unknown Verified 01/26/24 10:10 Surgical History Hx of tonsillectomy Hx of right cataract extraction Hx of left cataract extraction Hx of cholecystectomy Social History Smoking Status: Never smoker Review of Systems (Anesthesia) ROS Narrative System reviewed and no additional complaints, except as documented.
--- NOTE | 2024-06-28 12:00 | RAD_ITS ---
STUDY: CAUDAL EPIDURAL. REASON FOR EXAM: Female, 88 years old. CAUDAL EPIDURAL FLUOROSCOPY TIME (if supplied): ( 4 seconds ) minutes/seconds. One image was submitted. TECHNIQUE: Fluoroscopic services provided for caudal epidural. RAD/OR-Steroi/Epid Inj/Lum Sac/1st IMPRESSION: Fluoroscopic services provided for caudal epidural. Electronically Signed: Demarco Ennis MD at 9:00 EDT ,
[2024-06-28] MEDS: Lidocaine 1% (5 ml sdv) 5 ML Vial (12:05)
[2024-06-28] MEDS: MethylPREDNISolone Acetate 80 MG/ML Vial (12:05)
[2024-06-28] MEDS: Bupivacaine 0.25% 30 ML Vial (12:05)
[2024-06-28] MEDS: 0.9% Normal Saline (Pres. free 10 ML Vial (12:05)
--- NOTE | 2024-06-28 12:07 | OP.PCM_ITS ---
Report of Operation Date of Procedure: 06/28/24 Pre-Operative Diagnosis: Lumbosacral radiculopathy, lumbosacral degenerative di sc disease, lumbosacral spinal stenosis Post-Operative Diagnosis: Lumbosacral radiculopathy, lumbosacral degenerative disc disease, lumbosacral spinal stenosis Surgery/Procedure Performed:: Diagnostic/therapeutic caudal epidural steroid injection under fluoroscopic guidance Type of Anesthesia: MAC Estimated Blood Loss (mL): Minimal Description of Procedure: DESCRIPTION OF PROCEDURE: History and physical of today was reviewed. Risks and benefits of the procedure were explained. The patient understood and agreed to proceed. Informed consent was obtained. IV inserted per routine protocol. The patient was taken to the operating room and placed in the prone position with a pillow positioned underneath the abdomen. The lower back and tailbone area was prepped and draped in a sterile fashion using iodine x3. Under fluoroscopy guidance on a lateral view, the caudal space was identified. The skin and subcutaneous tissue was anesthetized with approximately 3 mL of 1% lidocaine using a 25-gauge regular needle. Under direct visualization with fluoroscopy, using a 22-gauge 3-1/2-inch spinal needle, the needle was advanced via the skin through the sacral hiatus. The tip of the needle was passed through the sacrococcygeal ligament and advanced to approximately S4 area. After negative aspiration of blood or CSF, a total of 3 mL of contrast was injected to confirm correct placement of the needle as well as cephalad spread. The spread was followed to approximately L5 area. After confirmation on AP as well as lateral view and repeated negative aspiration, a total of 15 mL of preservative-free 0.125% Marcaine with 80 mg of Depo-Medrol was injected easily. The needle was then removed intact. The patient experienced no sign or symptoms of intrathecal or intravascular injection. The patient experienced no paresthesia. The procedure was completed without any apparent difficulty or any complications. The patient appeared to tolerate it well. ASSESSMENT AND PLAN: This is an 88-year-old female with lumbosacral radiculopathy, lumbosacral degenerative disc disease, lumbosacral spinal stenosis status post diagnostic/therapeutic caudal epidural steroid injection, patient will continue her current medications, patient will follow in approximately 2 weeks for reevaluation. Complications None
--- NOTE | 2024-06-28 12:31 | PCM.POST.ANE ---
Anesthesia: Postop Eval I Current Vital Signs Temperature: 97.3 F Pulse Rate: 16 Blood Pressure: 162/73 Respiratory Rate: 16 Pulse Ox: 96 Oxygen Delivery Method: Room Air Assessment Airway patent: Yes Spontaneous unlabored respirations: Yes Mental status: Awake nausea: No Vomiting: No Anesthesia Complication: No Fluid Hydration Crystalloid volume administer (ml): 20 Total IV fluid infused: 20 Progress Note Anesthesia document: Postop Eval 1 completed: Yes
--- NOTE | 2024-06-28 12:43 | PCM.POSTANE2 ---
Anesthesia Postop Eval I Sum Postop Eval Completion status Anesthesia document: Postop Eval 1 completed: Yes Anesthesia Postop Eval I Summary Anesthesia Postop Eval I Summary: Anesthesia Postop Eval I: Assessment Summary Airway patent Yes 06/28/24 12:32 [email or web address] Spontaneous unlabored Yes 06/28/24 12:32 [email or web address] respirations Mental status Awake 06/28/24 12:32 [email or web address] nausea No 06/28/24 12:32 [email or web address] Vomiting No 06/28/24 12:32 [email or web address] Anesthesia Postop Eval I: Fluid Summary Crystalloid volume administer 20 06/28/24 12:32 [email or web address] (ml) Colloids volume administered ( ml) Blood Product volume administered (ml) Total IV fluid infused 20 06/28/24 12:32 [email or web address] Anesthesia Postop Eval I: Summary Notes Anesthesia Complication No 06/28/24 12:32 [email or web address] Anesthesia Complication Comment: Post-operative progress note Anesthesia: Postop Eval II Evaluation Mental status: Awake Pain Level: 0 nausea: No Vomiting: No
== END 2024-06-28 13:08 | disposition home or self-care (01) ==
LOC: SDC 11:12 → AC 11:14
PROVIDERS: PCP Internal Medicine; Referring Provider Anesthesiology Pain Medicine; Visit Provider Anesthesiology Pain Medicine
PROC: 3E0S3BZ Introduction of Anesthetic Agent into Epidural Space, Percutaneous Approach (ICD-10-PCS; CPT 62282; principal; 2024-06-28 12:35)
DX: M51.17 Intervertebral disc disorders with radiculopathy, lumbosacral region (principal); M48.07 Spinal stenosis, lumbosacral region
CPT/HCPCS: 62323; 64483; 77003; A4216; J3490

== ENCOUNTER → 2024-11-04 | Outpatient (REF) | payer MEDICARE, MEDICAID, SELFPAY ==
[2024-11-04 08:35] LABS: Absolute Lymphocyte Count 1.77 X10^3/uL (0.83-4.51); Absolute Neutrophil Count 2.4 X10^3/uL (2.0-7.7); Basophil# 0.04 X10^3/uL; Basophil% 0.8 % (0-1); Eosinophil# 0.18 X10^3/uL; Eosinophils% 3.6 % (0-5); Hematocrit 29.8 % (37-47); Hemoglobin 9.2 g/dL (12.0-15.0); Lymphocyte # 1.77 X10^3/ul (0.83-4.51); Lymphocyte % 35.8 % (19-41); Mean Corp Hgb Conc 30.9 g/dL (32-36); Mean Corpuscular Hgb 31.5 pg (27.0-32.0); Mean Corpuscular Volume 102.1 fL (81-99); Mean Platelet Vol. 9.8 fl (6.2-12.0); Monocyte# 0.57 X10^3/uL; Monocyte% 11.5 % (0-10); NRBC Flagged by Analyzer 0 % (0-5); Neutrophil # 2.37 X10^3/uL (2.7-7.7); Neutrophil % 48.1 % (47-70); Platelet Count 179 K/mm3 (150-450); RBC Distribution Width CV 11.6 % (11.6-14.6); RBC Distribution Width SD 43.7 fl (35.1-43.9); Red Blood Count 2.92 M/mm3 (4.2-5.4); White Blood Count 4.9 K/mm3 (4.4-11.0)
[2024-11-04 10:54] LABS: Anion Gap 11 (5-15); BUN 42 mg/dL (4-19); BUN/Creat Ratio 30.4 RATIO (10-20); Calcium 9.4 mg/dL (7.6-11.0); Carbon Dioxide 22.4 mmol/L (22.0-29.0); Chloride 105 mmol/L (96-108); Creatinine, Serum 1.4 mg/dL (0.6-1.0); EST Glomerular Filtration Rate 37 (>60); Glucose 86 mg/dL (70-99); Potassium 4.1 mmol/L (3.3-5.1); Sodium Level 139 mmol/L (133-145)
== END ==
LOC: OLS.WHLTSB 04:00
PROVIDERS: PCP Internal Medicine; Referring Provider Internal Medicine; Visit Provider Internal Medicine
DX: D64.9 Anemia, unspecified (principal)
CPT/HCPCS: 36415; 80048; 85025

== ENCOUNTER 2024-12-27 09:19 | Day surgery (SDC) | payer MEDICARE, MEDICAID, SELFPAY ==
[2024-12-27] VITALS (7 sets, daily range): BP systolic 168–186; BP diastolic 69–86; PULSE 68–83; RESP 16–20; TEMP 36.2–37.1; O2SAT 95–98; BMI 22.2
--- NOTE | 2024-12-27 09:30 | PRE.ANES_ITS ---
ASA Classification* ASA Classification ASA Classification: 2 Assessment & Plan Anesthesia* Anesthesia Assessment Anesthesia Assessment: Discussed sedation and/or anesthesia options, risks, benefits, and alternatives with patient/parents/legal guardian/POA. Questions invited. The patient/parents/legal guardian/POA seems to understand and agrees to proceed with anesthesia plan. Reviewed the physical assessment, medical history, allergy history and patient home medications list prior to surgery/procedure/anesthetic and documented any changes. Performed airway and anesthesia risk assessments. Anesthesia Type Anesthesia Type: MAC Anesthesia Focused Assessment* Airway Assessment Mouth opens: >3 cm Mallampati Score: II Focused Labs Anesthesia Preop lab: CBC WBC 4.9 K/mm3 (4.4-11.0) 11/04/24 05:05 11/04/24 RBC 2.92 M/mm3 (4.2-5.4) L 11/04/24 05:05 11/04/24 Hgb 9.2 g/dL (12.0-15.0) L 11/04/24 05:05 11/04/24 Hct 29.8 % (37-47) L 11/04/24 05:05 11/04/24 Plt Count 179 K/mm3 (150-450) 11/04/24 05:05 11/04/24 CHEMISTRY Potassium 4.1 mmol/L (3.3-5.1) 11/04/24 05:05 11/04/24 Sodium 139 mmol/L (133-145) 11/04/24 05:05 11/04/24 BUN 42 mg/dL (4-19) H 11/04/24 05:05 11/04/24 Creatinine 1.4 mg/dL (0.6-1.0) H 11/04/24 05:05 11/04/24 Glucose 86 mg/dL (70-99) 11/04/24 05:05 11/04/24 TSH 0.93 uIU/mL (0.358-3.74) 04/22/16 06:49 COAG Pre-Assessment Diagnosis/Proposed Procedure Planned Operative Procedure(s): EGD Anesthesia History 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 When Was Last Pacemaker Check QUESTION #4 FULL TEXT: You/Your Family Experience fever (hyperthermia) with Anesthesia Last Oral Intake Last Oral intake: Last Oral Intake NPO since Meds taken in AM with sips of water? Meds patient instructed to take am of surgery PONV PONV - utility bill complaints investigator: PONV - utility bill complaints investigator Female HX of Motion Sickness HX of N/V After Surgery Non-Smoker Duration of Surgery greater than 60 minutes Number of Risk Factors PONV Score Height & Weight Height & Weight: Anesthesia: Height & Weight Height 5 ft 3 in 06/28/24 11:51 Respiratory Assessment Respiratory Assessment - utility bill complaints investigator: Respiratory Tract Infection Hx - utility bill complaints investigator Hx Respiratory Tract Infection No 01/21/24 13:50 STOP Sleep Apnea STOP Sleep Apnea - utility bill complaints investigator: STOP Sleep Apnea - utility bill complaints investigator Hx Hypertension Yes 01/21/24 13:50 Hx Sleep Apnea No 06/28/24 12:25 CPAP No 11/25/22 12:07 BIPAP Do you snore loudly (louder than talking or can be heard Do you often feel tired/ fatigued/ sleepy during daytime? Has anyone observed you stop breathing during sleep? STOP Results QUESTION #5 FULL TEXT : Do you snore loudly (louder than talking or can be heard through closed doors)? 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 Specify any problems Hx of Preganancy in last 3 Months Nurse Filling Out Transfusion & Questions: Date: Time: Patient unable to answer at this time (ie. confused, unrespo /Reproduction History /Reproductive History - utility bill complaints investigator: /Reproductive Hx- utility bill complaints investigator Hx Now Gestational Age (in weeks): EDC: Hx Hx Para Hx Section SAB No 01/21/24 13:50 PFSH Medical History Redness of skin Walker as ambulation aid Heartburn Shortness of breath on exertion History of edema Loss of hearing Wears glasses Wears partial dentures Post-menopausal Depression Anxiety Uses wheelchair Arthritis Anemia Back pain Gastric reflux Non-smoker History of pain when walking Hypertension History of irregular heartbeat Lives in intermediate Pain Osteoarthritis of left knee Home Medications ?Medication ?Instructions ?Recorded ?Last Taken ?Type calcium carbonate-vitamin D3 600 1 ea PO DAILY 9 01/25/24 History mg-125 unit tablet gabapentin 300 mg capsule 300 mg PO BID 03/07/1901/25 History labetalol 100 mg tablet 100 mg PO BID 03/07/1901/25 History lisinopril 10 mg tablet 5 mg PO QHS 03/07/19 4 History omeprazole 20 mg capsule,delayed 20 mg PO DAILY 01/26/24 History release hydrochlorothiazide 12.5 mg tablet 12.5 mg PO DAILY 01/25/24 History acetaminophen 500 mg tablet 1,000 mg PO TID 11/21/22 0 01/26/24 History oxycodone 5 mg capsule 5 mg PO TID 11/21/22 4 History polyethylene glycol 3350 17 gram 17 g PO DAILY PRN PRN constipation 11/21/22 01/25/24 History oral powder packet (Miralax) diclofenac sodium 1 % topical gel 4 g topical Q4H PRN PRN pain 01/21/24 01/25/24 History latanoprost 0.005 % eye drops 1 drp EACH EYE QPM 01/2001/25/24 History lisinopril 20 mg tablet 20 mg PO DAILY 01/21/2401/07 History loperamide 2 mg tablet 2 mg PO 4X/DAY PRN loose sto ol 01/21/24 01/25/24 History (Anti-Diarrheal (loperamide)) Allergy/AdvReac Type Severity Reaction Status Date / Time acetaminophen (From Allergy Unknown Verified 06/28/24 11:49 Darvocet-N) amlodipine (From Norvasc) Allergy Upset Verified 06/28/24 11:49 Stomach celecoxib (From Celebrex) Allergy Unknown Verified 06/28/24 11:49 choline salicylate Allergy Unknown Verified 06/28/24 11:49 hydrocodone (From Vicodin) Allergy Unknown Verified 06/28/24 11:49 magnesium salicylate Allergy Unknown Verified 06/28/24 11:49 naproxen (From Naprosyn) Allergy Upset Verified 06/28/24 11:49 Stomach paroxetine (From Paxil) Allergy Unknown Verified 06/28/24 11:49 propoxyphene (From Allergy Unknown Verified 06/28/24 11:49 Darvocet-N) verapamil Allergy Unknown Verified 06/28/24 11:49 Surgical History Hx of tonsillectomy Hx of right cataract extraction Hx of left cataract extraction Hx of cholecystectomy Social History Smoking Status: Never smoker Review of Systems (Anesthesia) ROS Narrative System reviewed and no additional complaints, except as documented.
--- NOTE | 2024-12-27 10:10 | RAD_ITS ---
PROCEDURE: FLUOR GUIDANCE FOR SPINE INJ 12/27/2024 REASON FOR EXAM: BLOCK, CAUDAL TECHNIQUE: Intraoperative fluoroscopic services provided for caudal block. Fluoroscopy time: 10.1 seconds 3.96 mGy 1 image was provided. COMPARISON: None FINDINGS: Intraoperative fluoroscopic services provided for caudal block. RAD/Fluor Guidance for Spine Inj IMPRESSION: Intraoperative fluoroscopic services provided for caudal block. Reading Location: [facility]--1
[2024-12-27] MEDS: Bupivacaine 0.25% 30 ML Vial (10:16)
[2024-12-27] MEDS: 0.9% Normal Saline (Pres. free 10 ML Vial (10:16)
[2024-12-27] MEDS: MethylPREDNISolone Acetate 80 MG/ML Vial (10:16)
[2024-12-27] MEDS: Lidocaine 1% (5 ml sdv) 5 ML Vial (10:16)
--- NOTE | 2024-12-27 10:16 | PCM.POST.ANE ---
Anesthesia: Postop Eval I Current Vital Signs Temperature: 97.7 F Pulse Rate: 73 Blood Pressure: 168/86 Respiratory Rate: 20 Pulse Ox: 98 Oxygen Delivery Method: Room Air Assessment Airway patent: Yes Spontaneous unlabored respirations: Yes Mental status: Awake and Calm nausea: No Vomiting: No Anesthesia Complication: No Fluid Hydration Crystalloid volume administer (ml): 0 Total IV fluid infused: 0 Progress Note Anesthesia document: Postop Eval 1 completed: Yes
--- NOTE | 2024-12-27 10:22 | OP.PCM_ITS ---
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 BLOOD LOSS: Minimal. COMPLICATIONS: None. DESCRIPTION OF PROCEDURE: History and physical of today was reviewed. Risks and benefits of the procedure were explained. The patient understood and agreed to proceed. Informed consent was obtained. IV inserted per routine protocol. The patient was taken to the operating room and placed in the prone position with a pillow positioned underneath the abdomen. The lower back and tailbone area was prepped and draped in a sterile fashion using iodine x3. Under fluoroscopy guidance on a lateral view, the caudal space was identified. The skin and subcutaneous tissue was anesthetized with approximately 3 mL of 1% lidocaine using a 25-gauge regular needle. Under direct visualization with fluoroscopy, using a 22-gauge 3-1/2-inch spinal needle, the needle was advanced via the skin through the sacral hiatus. The tip of the needle was passed through the sacrococcygeal ligament and advanced to approximately S4 area. After negative aspiration of blood or CSF, a total of 3 mL of contrast was injected to confirm correct placement of the needle as well as cephalad spread. The spread was followed to approximately L5 area. After confirmation on AP as well as lateral view and repeated negative aspiration, a total of 15 mL of preservative-free 0.125% Marcaine with 80 mg of Depo-Medrol was injected easily. The needle was then removed intact. The patient experienced no sign or symptoms of intrathecal or intravascular injection. The patient experienced no paresthesia. The procedure was completed without any apparent difficulty or any complications. The patient appeared to tolerate it well. ASSESSMENT AND PLAN: This is an-89 year-old female with lumbosacral radiculopathy, lumbosacral spinal stenosis, lumbosacral degenerative disc disease status post diagnostic/therapeutic caudal epidural steroid injection under fluoroscopic guidance, patient will continue his current medications, patient will follow up in approximately 2 weeks for reevaluation. Surgical Findings: 0 Complications Complications: No Admit VTE Documentation VTE Present on Admission: No VTE Mechan Device Prophylaxis: None VTE Pharm Prophylaxis ordered?: No
--- NOTE | 2024-12-27 12:33 | POSTOPAN2_ITS ---
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.BHOS Spontaneous unlabored Yes 12/27/24 10:28 PLATEN DRIER OPERATOR.OS respirations Mental status Awake,Calm 12/27/24 10:28 PLATEN DRIER OPERATOR.BHOS nausea No 12/27/24 10:28 PLATEN DRIER OPERATOR.BHOS Vomiting No 12/27/24 10:28 PLATEN DRIER OPERATOR.[facility] Anesthesia Postop Eval I: Fluid Summary Crystalloid volume administer 0 12/27/24 10:28 PLATEN DRIER OPERATOR.BHOS (ml) Colloids volume administered ( ml) Blood Product volume administered (ml) Total IV fluid infused 0 12/27/24 10:28 PLATEN DRIER OPERATOR.[facility] Anesthesia Postop Eval I: Summary Notes Anesthesia Complication No 12/27/24 10:28 PLATEN DRIER OPERATOR.[facility] Anesthesia Complication Comment: Post-operative progress note Anesthesia: Postop Eval II Evaluation Mental status: Awake Pain Level: 0 nausea: No Vomiting: No
--- NOTE | 2024-12-27 12:33 | PCM.POSTANE2 ---
Anesthesia Postop Eval I Sum Postop Eval Completion status Anesthesia document: Postop Eval 1 completed: Yes Anesthesia Postop Eval I Summary Anesthesia Postop Eval I Summary: Anesthesia Postop Eval I: Assessment Summary Airway patent Yes 12/27/24 10:28 MAINTENANCE SUPERVISOR ELECTRICAL.BHOS Spontaneous unlabored Yes 12/27/24 10:28 MAINTENANCE SUPERVISOR ELECTRICAL.OS respirations Mental status Awake,Calm 12/27/24 10:28 MAINTENANCE SUPERVISOR ELECTRICAL.BHOS nausea No 12/27/24 10:28 MAINTENANCE SUPERVISOR ELECTRICAL.BHOS Vomiting No 12/27/24 10:28 MAINTENANCE SUPERVISOR ELECTRICAL.[facility] Anesthesia Postop Eval I: Fluid Summary Crystalloid volume administer 0 12/27/24 10:28 MAINTENANCE SUPERVISOR ELECTRICAL.BHOS (ml) Colloids volume administered ( ml) Blood Product volume administered (ml) Total IV fluid infused 0 12/27/24 10:28 MAINTENANCE SUPERVISOR ELECTRICAL.[facility] Anesthesia Postop Eval I: Summary Notes Anesthesia Complication No 12/27/24 10:28 MAINTENANCE SUPERVISOR ELECTRICAL.[facility] Anesthesia Complication Comment: Post-operative progress note Anesthesia: Postop Eval II Evaluation Mental status: Awake Pain Level: 0 nausea: No Vomiting: No
== END 2024-12-27 11:26 | disposition home or self-care (01) ==
LOC: SDC 09:20 → AC 09:21
PROVIDERS: PCP Internal Medicine; Referring Provider Anesthesiology Pain Medicine; Visit Provider Anesthesiology Pain Medicine
PROC: 3E0S3BZ Introduction of Anesthetic Agent into Epidural Space, Percutaneous Approach (ICD-10-PCS; CPT 62282; principal; 2024-12-27 10:35)
DX: M51.17 Intervertebral disc disorders with radiculopathy, lumbosacral region (principal); M48.07 Spinal stenosis, lumbosacral region; I10 Essential (primary) hypertension; Z79.899 Other long term (current) drug therapy
CPT/HCPCS: 62323; 01992; 64483; 77003; A4216

== ENCOUNTER → 2025-05-05 05:00 | Outpatient (REF) | payer MEDICARE, MEDICAID, SELFPAY ==
[2025-05-05 09:16] LABS: Hematocrit 30.1 % (37-47); Hemoglobin 9.7 g/dL (12.0-15.0); Immature Granulocytes Count 0.020 X10^3/uL (0.0-0.0); Mean Corp Hgb Conc 32.2 g/dL (32-36); Mean Corpuscular Volume 101.0 fL (81-99); Mean Platelet Vol. 9.8 fl (6.2-12.0); NRBC Flagged by Analyzer 0 % (0-5); Platelet Count 180 K/mm3 (150-450); RBC Distribution Width CV 12.3 % (11.6-14.6); RBC Distribution Width SD 45.6 fl (35.1-43.9); Red Blood Count 2.98 M/mm3 (4.2-5.4); White Blood Count 6.5 K/mm3 (4.4-11.0)
[2025-05-05 09:29] LABS: Anion Gap 12 (5-15); BUN 57 mg/dL (4-19); BUN/Creat Ratio 31.9 RATIO (10-20); Calcium,Total 9.6 mg/dL (7.6-11.0); Carbon Dioxide 19.2 mmol/L (21.0-32.0); Chloride 109 mmol/L (98-108); Glucose 87 mg/dL (70-99); Potassium 4.5 mmol/L (3.3-5.1)
== END ==
LOC: OLS.WHLTSB 05:00
PROVIDERS: PCP Internal Medicine; Visit Provider Internal Medicine
DX: I10 Essential (primary) hypertension (principal)
CPT/HCPCS: 36415; 80048; 85025

== ENCOUNTER 2025-05-23 09:22 | Day surgery (SDC) | payer MEDICARE, MEDICAID, SELFPAY ==
[2025-05-23] VITALS (8 sets, daily range): BP systolic 150–164; BP diastolic 60–85; PULSE 68–74; RESP 16–18; TEMP 36.2–37.3; O2SAT 96–100; BMI 22.2
[2025-05-23] MEDS: Lactated Ringers 1,000 ML 15 ML IV (09:47)
--- NOTE | 2025-05-23 09:53 | PRE.ANES_ITS ---
ASA Classification* ASA Classification ASA Classification: 3 Assessment & Plan Anesthesia* Anesthesia Assessment Anesthesia Assessment: Discussed sedation and/or anesthesia options, risks, benefits, and alternatives with patient/parents/legal guardian/POA. Questions invited. The patient/parents/legal guardian/POA seems to understand and agrees to proceed with anesthesia plan. Reviewed the physical assessment, medical history, allergy history and patient home medications list prior to surgery/procedure/anesthetic and documented any changes. Performed airway and anesthesia risk assessments. Anesthesia Type Anesthesia Type: MAC Anesthesia Focused Assessment* Airway Assessment Mouth opens: >3 cm Mallampati Score: II Labs Anesthesia Preop lab: CBC WBC 6.5 K/mm3 (4.4-11.0) 05/05/25 05:15 05/05/25 RBC 2.98 M/mm3 (4.2-5.4) L 05/05/25 05:15 05/05/25 Hgb 9.7 g/dL (12.0-15.0) L 05/05/25 05:15 05/05/25 Hct 30.1 % (37-47) L 05/05/25 05:15 05/05/25 Plt Count 180 K/mm3 (150-450) 05/05/25 05:15 05/05/25 CHEMISTRY Potassium 4.5 mmol/L (3.3-5.1) 05/05/25 05:15 05/05/25 Sodium 140 mmol/L (133-145) 05/05/25 05:15 05/05/25 BUN 57 mg/dL (4-19) H 05/05/25 05:15 05/05/25 Creatinine 1.78 mg/dL (0.70-1.20) H 05/05/25 05:15 Glucose 87 mg/dL (70-99) 05/05/25 05:15 05/05/25 TSH 0.93 uIU/mL (0.358-3.74) 04/22/16 06:49 COAG Pre-Assessment Diagnosis/Proposed Procedure Planned Operative Procedure(s): RIGHT LUMBAR EPIDURAL STEROID INJECTION L4,5 S1 Anesthesia History 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 When Was Last Pacemaker Check QUESTION #4 FULL TEXT: You/Your Family Experience fever (hyperthermia) with Anesthesia Last Oral Intake Last Oral intake: Last Oral Intake NPO since Meds taken in AM with sips of water? Meds patient instructed to take am of surgery PONV PONV - pain management nurse practitioner: PONV - pain management nurse practitioner Female Yes 05/16/25 12:26 HX of Motion Sickness No 05/16/25 12:26 HX of N/V After Surgery No 05/16/25 12:26 Non-Smoker Yes 05/16/25 12:26 Duration of Surgery greater No 05/16/25 12:26 than 60 minutes Number of Risk Factors 2 05/16/25 12:26 PONV Score Moderate Risk 05/16/25 12:26 Height & Weight Height & Weight: Anesthesia: Height & Weight Height 5 ft 3 in 12/27/24 09:40 Respiratory Assessment Respiratory Assessment - pain management nurse practitioner: Respiratory Tract Infection Hx - pain management nurse practitioner Hx Respiratory Tract Infection No 05/16/25 12:26 STOP Sleep Apnea STOP Sleep Apnea - pain management nurse practitioner: STOP Sleep Apnea - pain management nurse practitioner Hx Hypertension Yes 05/16/25 12:26 Hx Sleep Apnea No 05/16/25 12:26 CPAP No 11/25/22 12:07 BIPAP Do you snore loudly (louder No 05/16/25 12:26 than talking or can be heard Do you often feel tired/ No 05/16/25 12:26 fatigued/ sleepy during daytime? Has anyone observed you stop No 05/16/25 12:26 breathing during sleep? STOP Results Negative 05/16/25 12:26 QUESTION #5 FULL TEXT : Do you snore loudly (louder than talking or can be heard through closed doors)? Tobacco Use History Tobacco Use History - pain management nurse practitioner: Tobacco Use History - pain management nurse practitioner Tobacco Use Smoking Status Never smoker 05/16/25 12:26 Hx Tobacco Use No 05/16/25 12:26 Years Smoking Packs Smoked per Day Smoking Cessation Date was within the last 15 years Hx Smoking Cessation Date Hx Smoking Cessation Counseling Hematologic Medial History Hematologic Hx - pain management nurse practitioner: Hematologic Medical Hx - physician general practice Hx of Blood Transfusion No 05/16/25 12:26 Hx of Transfusion in last 3 No 05/16/25 12:26 Months Date of Last Transfusion (if within last 3 months) Ever experience any problems No 05/16/25 12:26 with transfusion(s)? Specify any problems Hx of Preganancy in last 3 No 05/16/25 12:26 Months Nurse Filling Out Transfusion DSCHRIBER 05/16/25 12:26 & Questions: Date: 05/16/25 05/16/25 12:26 Time: 12:27 05/16/25 12:26 Patient unable to answer at this time (ie. confused, unrespo /Reproduction History /Reproductive History - pain management nurse practitioner: /Reproductive Hx- pain management nurse practitioner Hx Now No 05/16/25 12:26 Gestational Age (in weeks): EDC: Hx Hx Para Hx Section SAB No 05/16/25 12:26 Active Medications Active Medications: Current Medications Generic Name Dose Route Start Last Admin Trade Name Freq PRN Reason Stop Dose Admin Lactated Ringer's 1,000 mls @ 15 mls/hr 05/23/25 09:45 05/23/25 09:47 IV 15 mls/hr .Q48H EVONNE Administration PFSH Medical History Walker as ambulation aid Heartburn Shortness of breath on exertion History of edema Loss of hearing Wears glasses Wears partial dentures Post-menopausal Depression Anxiety Uses wheelchair Arthritis Anemia Back pain Gastric reflux Non-smoker History of pain when walking Hypertension History of irregular heartbeat Lives in long term Pain Osteoarthritis of left knee Home Medications ?Medication ?Instructions ?Recorded ?Last Taken ?Type calcium carbonate-vitamin D3 600 1 ea PO DAILY 9 01/25/24 History mg-125 unit tablet labetalol 100 mg tablet 100 mg PO BID 03/07/1905/23 07:15 History omeprazole 20 mg capsule,delayed 20 mg PO DAILY 05/23/25 07:15 History release hydrochlorothiazide 12.5 mg tablet 12.5 mg PO DAILY 01/25/24 History acetaminophen 500 mg tablet 1,000 mg PO TID 11/21/22 0 05/23/25 07:15 History polyethylene glycol 3350 17 gram 17 g PO DAILY PRN PRN constipation 11/21/22 01/25/24 History oral powder packet (Miralax) diclofenac sodium 1 % topical gel 4 g topical TID pain 01/21/24 01/25/24 History latanoprost 0.005 % eye drops 1 drp EACH EYE QPM 01/2001/25/24 History lisinopril 20 mg tablet 20 mg PO DAILY 01/21/2401/07 History loperamide 2 mg tablet 2 mg PO 4X/DAY PRN loose sto ol 01/21/24 01/25/24 History (Anti-Diarrheal (loperamide)) oxycodone 5 mg tablet 5 mg PO TID pain 30 days #90 tabs 05/05/25 05/23/25 07:15 Rx gabapentin 100 mg capsule 200 mg PO QHS 05/16/25 Unkno wn History mirtazapine 7.5 mg tablet 7.5 mg PO QHS 05/16/25 Unkno wn History ondansetron HCl 4 mg tablet 4 mg PO Q8H PRN nausea and vomiting 05/16/25 Unknown History Allergy/AdvReac Type Severity Reaction Status Date / Time acetaminophen (From Allergy Unknown Verified 05/23/25 09:45 Darvocet-N) amlodipine (From Norvasc) Allergy Upset Verified 05/23/25 09:45 Stomach celecoxib (From Celebrex) Allergy Unknown Verified 05/23/25 09:45 choline salicylate Allergy Unknown Verified 05/23/25 09:45 hydrocodone (From Vicodin) Allergy Unknown Verified 05/23/25 09:45 magnesium salicylate Allergy Unknown Verified 05/23/25 09:45 naproxen (From Naprosyn) Allergy Upset Verified 05/23/25 09:45 Stomach paroxetine (From Paxil) Allergy Unknown Verified 05/23/25 09:45 propoxyphene (From Allergy Unknown Verified 05/23/25 09:45 Darvocet-N) verapamil Allergy Unknown Verified 05/23/25 09:45 Surgical History Hx of tonsillectomy Hx of right cataract extraction Hx of left cataract extraction Hx of cholecystectomy Social History Smoking Status: Never smoker Review of Systems (Anesthesia) ROS Narrative System reviewed and no additional complaints, except as documented.
--- NOTE | 2025-05-23 10:10 | RAD_ITS ---
PROCEDURE: LUMBAR SPINE 2 OR 3 VIEWS 05/23/2025 REASON FOR EXAM: TRANSFORAMINAL EPIDURAL L4-S1, RIGHT TECHNIQUE: Fluoro for procedure COMPARISON: None FINDINGS: 2 images, 11.9 seconds, 2.64 mGy RAD/Lumbar Spine 2 or 3 Views IMPRESSION: Fluoro was provided. Reading Location: [facility]
[2025-05-23] MEDS: Lidocaine 1% (5 ml sdv) 5 ML Vial (10:24)
--- NOTE | 2025-05-23 10:31 | PCM.POST.ANE ---
Anesthesia: Postop Eval I Current Vital Signs Temperature: 97.1 F Pulse Rate: 74 Blood Pressure: 164/69 Respiratory Rate: 16 Pulse Ox: 100 Oxygen Delivery Method: Room Air Assessment Airway patent: Yes Spontaneous unlabored respirations: Yes Mental status: Awake and Calm nausea: No Vomiting: No Anesthesia Complication: No Fluid Hydration Crystalloid volume administer (ml): 200 Total IV fluid infused: 200 Progress Note Anesthesia document: Postop Eval 1 completed: Yes
--- NOTE | 2025-05-23 10:33 | OP.PCM_ITS ---
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 ANESTHESIA: MAC BLOOD LOSS: Minimal COMPLICATIONS: None DESCRIPTION OF PROCEDURE: History and physical of today was reviewed. Risks and benefits of the procedure were explained. The patient understood and agreed to proceed. Informed consent was obtained. IV inserted per routine protocol. The patient was taken to the operating room and placed in the prone position with a pillow positioned underneath the abdomen. The right side of the lower back was prepped and draped in a sterile fashion using iodine x3. Under fluoroscopy guidance on oblique view, the L4 through S1 vertebral bodies were visualized. The skin and subcutaneous tissue was anesthetized with approximately 5 mL of 1% lidocaine using a 25-gauge regular needle. Under direct visualization with fluoroscopy at approximately 35-degree angle, starting on the right L4, ending on the right L5, using a 22-gauge 5-inch spinal needle, the needle was advanced via the skin. The tip of the needle was maneuvered and directed towards the inferior and medial gutter of the transverse process at the superiormost aspect of the neural foramen. Once the tip of the needle was at the vicinity of the foramen, after negative aspiration for blood or CSF, a total of 1 mL of contrast was injected in divided doses between both levels to confirm correct placement of the needle as well as medial spread. The confirmation was obtained on AP as well as lateral view. After repeated negative aspiration and confirmation on AP as well as lateral view, a total of 6 mL of preservative-free 0.25% Marcaine with 80 mg of Depo-Medrol was injected in divided doses between both levels. The needles were then removed intact. The patient experienced no sign or symptoms of intrathecal or intravascular injection. The patient experienced no paresthesia. The procedure was completed without any apparent difficulty or any complications. The patient appeared to tolerate it well. Assessment and plan: This is an 89-year-old female with lumbosacral radiculopathy, lumbosacral degenerative disc disease, lumbosacral spinal stenosis, status post right sided lumbar transforaminal epidural steroid injection L4-5 L5-S1 under fluoroscopic guidance, patient will continue her current medications, patient will follow-up in approximately 2 weeks for reevaluation. Surgical Findings: 0 Complications Complications: No Admit VTE Documentation VTE Present on Admission: No VTE Mechan Device Prophylaxis: None VTE Pharm Prophylaxis ordered?: No
--- NOTE | 2025-05-23 11:40 | SUR.PHASEII ---
1135 report called to nurse at [facility]. Lc Benítez RN
--- NOTE | 2025-05-23 12:11 | POSTOPAN2_ITS ---
Anesthesia Postop Eval I Sum Postop Eval Completion status Anesthesia document: Postop Eval 1 completed: Yes Anesthesia Postop Eval I Summary Anesthesia Postop Eval I Summary: Anesthesia Postop Eval I: Assessment Summary Airway patent Yes 05/23/25 10:32 NURSES DIRECTOR.MOUSTAPHAOBAide Spontaneous unlabored Yes 05/23/25 10:32 NURSES DIRECTOR.DULCE respirations Mental status Awake,Calm 05/23/25 10:32 NURSES DIRECTOR.MOUSTAPHAOBAide nausea No 05/23/25 10:32 NURSES DIRECTOR.MOUSTAPHAOBAide Vomiting No 05/23/25 10:32 NURSES DIRECTOR.DULCE Anesthesia Postop Eval I: Fluid Summary Crystalloid volume administer 200 05/23/25 10:32 NURSES DIRECTOR.MOUSTAPHAOBY (ml) Colloids volume administered ( ml) Blood Product volume administered (ml) Total IV fluid infused 200 05/23/25 10:32 NURSES DIRECTOR.DULCE Anesthesia Postop Eval I: Summary Notes Anesthesia Complication No 05/23/25 10:32 NURSES DIRECTOR.DULCE Anesthesia Complication Comment: Post-operative progress note Anesthesia: Postop Eval II Evaluation Mental status: Awake Pain Level: 2 nausea: No Vomiting: No
--- NOTE | 2025-05-23 12:11 | PCM.POSTANE2 ---
Anesthesia Postop Eval I Sum Postop Eval Completion status Anesthesia document: Postop Eval 1 completed: Yes Anesthesia Postop Eval I Summary Anesthesia Postop Eval I Summary: Anesthesia Postop Eval I: Assessment Summary Airway patent Yes 05/23/25 10:32 JOURNALIST.MOUSTAPHAOBAide Spontaneous unlabored Yes 05/23/25 10:32 JOURNALIST.DULCE respirations Mental status Awake,Calm 05/23/25 10:32 JOURNALIST.MOUSTAPHAOBAide nausea No 05/23/25 10:32 JOURNALIST.MOUSTAPHAOBAide Vomiting No 05/23/25 10:32 JOURNALIST.DULCE Anesthesia Postop Eval I: Fluid Summary Crystalloid volume administer 200 05/23/25 10:32 JOURNALIST.MOUSTAPHAOBY (ml) Colloids volume administered ( ml) Blood Product volume administered (ml) Total IV fluid infused 200 05/23/25 10:32 JOURNALIST.DULCE Anesthesia Postop Eval I: Summary Notes Anesthesia Complication No 05/23/25 10:32 JOURNALIST.DULCE Anesthesia Complication Comment: Post-operative progress note Anesthesia: Postop Eval II Evaluation Mental status: Awake Pain Level: 2 nausea: No Vomiting: No
== END 2025-05-23 11:36 | disposition home or self-care (01) ==
LOC: SDC 09:25 → AC 09:29
PROVIDERS: PCP Internal Medicine; Referring Provider Anesthesiology Pain Medicine; Visit Provider Anesthesiology Pain Medicine
PROC: 3E0S3BZ Introduction of Anesthetic Agent into Epidural Space, Percutaneous Approach (ICD-10-PCS; CPT 64484; principal; 2025-05-23 10:35)
DX: M51.17 Intervertebral disc disorders with radiculopathy, lumbosacral region (principal); M48.07 Spinal stenosis, lumbosacral region; Z79.899 Other long term (current) drug therapy
CPT/HCPCS: 64484; 01992; 64483; 72100

== ENCOUNTER 2025-08-22 11:30 | Day surgery (SDC) | payer MEDICARE, MEDICAID, SELFPAY ==
[2025-08-22] VITALS (7 sets, daily range): BP systolic 149–198; BP diastolic 64–99; PULSE 69–78; RESP 16–18; TEMP 36.2–36.4; O2SAT 97–99; BMI 19.1
--- NOTE | 2025-08-22 12:30 | RAD_ITS ---
PROCEDURE: FLUOR GUIDANCE FOR SPINE INJ 08/22/2025 REASON FOR EXAM: CAUDAL BLOCK TECHNIQUE: Procedure Code: RADSPN Modality: DX Procedure: FLUOR GUIDANCE FOR SPINE INJ. Fluoroscopy: 4.5 seconds. Radiation dose: 1.11 mGy. 1 image was submitted. COMPARISON: None FINDINGS: Intraoperative fluoroscopic services provided for caudal block. RAD/Fluor Guidance for Spine Inj IMPRESSION: Intraoperative fluoroscopic services provided for caudal block. Reading Location: [facility]
[2025-08-22] MEDS: Lactated Ringers 1,000 ML 15 ML IV (12:43)
--- NOTE | 2025-08-22 12:55 | PCM.PRE.AN2 ---
ASA Classification* ASA Classification ASA Classification: 3 Assessment & Plan Anesthesia* Anesthesia Assessment Anesthesia Assessment: Discussed sedation and/or anesthesia options, risks, benefits, and alternatives with patient/parents/legal guardian/POA. Questions invited. The patient/parents/legal guardian/POA seems to understand and agrees to proceed with anesthesia plan. Reviewed the physical assessment, medical history, allergy history and patient home medications list prior to surgery/procedure/anesthetic and documented any changes. Performed airway and anesthesia risk assessments. Anesthesia Type Anesthesia Type: MAC History Source History Obtained from:: Patient and Chart Anesthesia Focused Assessment* Temperature: 97.6 F Pulse Rate: 78 Blood Pressure: 198/70 Respiratory Rate: 18 Pulse Ox: 97 Oxygen Delivery Method: Room Air Airway Assessment Mouth opens: >3 cm Mallampati Score: III Teeth Condition: Partial (Upper partials are out.) Neck Range of motion (ROM): Limited ROM (Severe Restriction) Labs Anesthesia Preop lab: CBC WBC, (4.4-11.0) 6.5 K/mm3 05/05/25, 05:15 RBC, (4.2-5.4) 2.98 M/mm3 L 05/05/25, 05:15 Hgb, (12.0-15.0) 9.7 g/dL L 05/05/25, 05:15 Hct, (37-47) 30.1 % L 05/05/25, 05:15 Plt Count, (150-450) 180 K/mm3 05/05/25, 05:15 CHEMISTRY Potassium, (3.3-5.1) 4.5 mmol/L 05/05/25, 05:15 Sodium, (133-145) 140 mmol/L 05/05/25, 05:15 BUN, (4-19) 57 mg/dL H 05/05/25, 05:15 Creatinine, (0.70-1.20) 1.78 mg/dL H 05/05/25, 05:15 Glucose, (70-99) 87 mg/dL 05/05/25, 05:15 TSH, (0.358-3.74) 0.93 uIU/mL 04/22/16, 06:49 COAG Pre-Assessment Diagnosis/Proposed Procedure Planned Operative Procedure(s): CAUDAL BLOCK Anesthesia History 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 When Was Last Pacemaker Check QUESTION #4 FULL TEXT: You/Your Family Experience fever (hyperthermia) with Anesthesia Last Oral Intake Last Oral intake: Last Oral Intake NPO since 18:00 08/22/25 12:37 Meds taken in AM with sips of Yes 08/22/25 12:37 water? Meds patient instructed to TYLENOL,LABETALOL,PRILOSEC 08/22/25 12:37 take am of surgery AND OXYCODONE PONV PONV - fuel cell systems engineer: PONV - fuel cell systems engineer Female Yes 08/18/25 15:46 HX of Motion Sickness No 08/18/25 15:46 HX of N/V After Surgery No 08/18/25 15:46 Non-Smoker Yes 08/18/25 15:46 Duration of Surgery greater No 08/18/25 15:46 than 60 minutes Number of Risk Factors 2 08/18/25 15:46 PONV Score Moderate Risk 08/18/25 15:46 Height & Weight Height & Weight: Anesthesia: Height & Weight Height 5 ft 3 in 08/22/25 12:37 Weight: 49 kg 08/22/25 12:37 Body Mass Index (BMI) 19.1 08/22/25 12:37 Respiratory Assessment Respiratory Assessment - fuel cell systems engineer: Respiratory Tract Infection Hx - fuel cell systems engineer Hx Respiratory Tract Infection No 08/18/25 15:46 STOP Sleep Apnea STOP Sleep Apnea - fuel cell systems engineer: STOP Sleep Apnea - fuel cell systems engineer Hx Hypertension Yes: CONTROLLED WITH MED 08/18/25 15:46 Hx Sleep Apnea No 08/18/25 15:46 CPAP No 08/18/25 15:46 BIPAP Do you snore loudly (louder No 08/18/25 15:46 than talking or can be heard Do you often feel tired/ No 08/18/25 15:46 fatigued/ sleepy during daytime? Has anyone observed you stop No 08/18/25 15:46 breathing during sleep? STOP Results Negative 08/18/25 15:46 QUESTION #5 FULL TEXT : Do you snore loudly (louder than talking or can be heard through closed doors)? 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 Specify any problems Hx of Preganancy in last 3 No 08/18/25 15:46 Months Nurse Filling Out Transfusion DSCHRIBER 08/18/25 15:46 & Questions: Date: 08/18/25 08/18/25 15:46 Time: 15:47 08/18/25 15:46 Patient unable to answer at this time (ie. confused, unrespo /Reproduction History /Reproductive History - fuel cell systems engineer: /Reproductive Hx- fuel cell systems engineer Hx Now No 08/18/25 15:46 Gestational Age (in weeks): EDC: Hx Hx Para Hx Section SAB No 08/18/25 15:46 Does the father of the baby or his family experience fever w Father of the baby Malignant Hypertension history comment Active Medications Active Medications: Current Medications Generic Name Dose Route Start Last Admin Trade Name Freq PRN Reason Stop Dose Admin Lactated Ringer's 1,000 mls @ 15 mls/hr 08/22/25 12:00 08/22/25 12:43 IV 15 mls/hr .Q48H EVONNE Administration PFSH Medical History Walker as ambulation aid Shortness of breath on exertion History of edema Loss of hearing Wears glasses Wears partial dentures Post-menopausal Depression Anxiety Uses wheelchair Arthritis Anemia Back pain Gastric reflux Non-smoker History of pain when walking Hypertension History of irregular heartbeat Lives in usp Pain Osteoarthritis of left knee Home Medications ?Medication ?Instructions ?Recorded ?Last Taken ?Type labetalol 100 mg tablet 100 mg PO BID 03/07/19 08/22/25 History omeprazole 20 mg capsule,delayed 20 mg PO DAILY 03/07/19 08/22/25 History release hydrochlorothiazide 12.5 mg tablet 12.5 mg PO DAILY 08/25/20 01/25/24 History acetaminophen 500 mg tablet 1,000 mg PO TID 11/21/22 08/22/25 History polyethylene glycol 3350 17 gram 17 g PO DAILY PRN PRN constipation 11/21/22 01/25/24 History oral powder packet (Miralax) diclofenac sodium 1 % topical gel 4 g topical DAILY pain 01/21/24 01/25/24 History latanoprost 0.005 % eye drops 1 drp EACH EYE QPM 01/21/24 01/25/24 History lisinopril 20 mg tablet 20 mg PO DAILY 01/21/24 01/26/24 History loperamide 2 mg tablet 2 mg PO 4X/DAY PRN loose stool 01/21/24 01/25/24 History (Anti-Diarrheal (loperamide)) gabapentin 100 mg capsule 200 mg PO QHS 05/16/25 Unknown History mirtazapine 7.5 mg tablet 7.5 mg PO QHS 05/16/25 Unknown History ondansetron HCl 4 mg tablet 4 mg PO Q8H PRN nausea and vomiting 05/16/25 Unknown History oxycodone 5 mg tablet 5 mg PO TID pain 30 days #90 tabs 08/08/25 08/22/25 Rx calcium 500 mg (as 1 tab PO DAILY 08/18/25 Unknown History carbonate)-vitamin D3 5 mcg (200 unit) tablet (Oyster Shell Calcium-Vitamin D3) Allergy/AdvReac Type Severity Reaction Status Date / Time amlodipine (From Norvasc) Allergy Upset Verified 08/22/25 12:27 Stomach celecoxib (From Celebrex) Allergy Unknown Verified 08/22/25 12:27 choline salicylate Allergy Unknown Verified 08/22/25 12:27 hydrocodone (From Vicodin) Allergy Unknown Verified 08/22/25 12:27 magnesium salicylate Allergy Unknown Verified 08/22/25 12:27 naproxen (From Naprosyn) Allergy Upset Verified 08/22/25 12:27 Stomach paroxetine (From Paxil) Allergy Unknown Verified 08/22/25 12:27 propoxyphene (From Allergy Unknown Verified 08/22/25 12:27 Darvocet-N) verapamil Allergy Unknown Verified 08/22/25 12:27 Surgical History Hx of tonsillectomy Hx of right cataract extraction Hx of left cataract extraction Hx of cholecystectomy Social History Smoking Status: Never smoker Review of Systems (Anesthesia) ROS Narrative System reviewed and no additional complaints, except as documented.
[2025-08-22] MEDS: Lidocaine 1% (5 ml sdv) 5 ML Vial (13:27)
[2025-08-22] MEDS: 0.9% Normal Saline (Pres. free 10 ML Vial (13:27)
--- NOTE | 2025-08-22 13:28 | PCM.OPRPT ---
Operative Report (Standard) Operative Information Date of Procedure: 08/22/25 Pre-Operative Diagnosis: lumbosacral radiculopathy, lumbosacral degenerative disc disease, lumbosacral spinal stenosis Post-Operative Diagnosis: lumbosacral radiculopathy, lumbosacral degenerative disc disease, lumbosacral spinal stenosis Surgery/Procedure Performed: Diagnostic/therapeutic caudal epidural steroid injection under fluoroscopic guidance railroad design consultant: No Type of Anesthesia: Local MAC RN Documented Start/Stop Times: Operation Date: 08/22/25 13:30 Case Time Into Pre-Op 08/22/25 11:53 Anesthesia Start 08/22/25 13:18 Into Room 08/22/25 13:18 Procedure Start 08/22/25 13:26 Procedure Start Time: 13:28 Procedure Stop Time: : Select all DRAINS/GRAFTS/IMPLANTS that apply: None Estimated Blood Loss: 1 Specimen collected: No Description of surgery: ANESTHESIA: MAC. BLOOD LOSS: Minimal. COMPLICATIONS: None. DESCRIPTION OF PROCEDURE: History and physical of today was reviewed. Risks and benefits of the procedure were explained. The patient understood and agreed to proceed. Informed consent was obtained. IV inserted per routine protocol. The patient was taken to the operating room and placed in the prone position with a pillow positioned underneath the abdomen. The lower back and tailbone area was prepped and draped in a sterile fashion using iodine x3. Under fluoroscopy guidance on a lateral view, the caudal space was identified. The skin and subcutaneous tissue was anesthetized with approximately 3 mL of 1% lidocaine using a 25-gauge regular needle. Under direct visualization with fluoroscopy, using a 22-gauge 3-1/2-inch spinal needle, the needle was advanced via the skin through the sacral hiatus. The tip of the needle was passed through the sacrococcygeal ligament and advanced to approximately S4 area. After negative aspiration of blood or CSF, a total of 3 mL of contrast was injected to confirm correct placement of the needle as well as cephalad spread. The spread was followed to approximately L5 area. After confirmation on AP as well as lateral view and repeated negative aspiration, a total of 15 mL of preservative-free 0.125% Marcaine with 80 mg of Depo-Medrol was injected easily. The needle was then removed intact. The patient experienced no sign or symptoms of intrathecal or intravascular injection. The patient experienced no paresthesia. The procedure was completed without any apparent difficulty or any complications. The patient appeared to tolerate it well. ASSESSMENT AND PLAN: This is an 89-year-old female with lumbosacral radiculopathy, lumbosacral degenerative disc disease, lumbosacral spinal stenosis, status post diagnostic/therapeutic caudal epidural steroid injection under fluoroscopic guidance, patient will continue her current medications, patient will follow-up in approximately 2 weeks for reevaluation. Surgical Findings: 0 Complications Complications: No Admit VTE Documentation VTE Present on Admission: No VTE Pharm Prophylaxis ordered?: No
--- NOTE | 2025-08-22 13:35 | PCM.POST.ANE ---
Anesthesia: Postop Eval I Current Vital Signs Temperature: 97.2 F Pulse Rate: 69 Blood Pressure: 165/99 Respiratory Rate: 16 Pulse Ox: 99 Assessment Airway patent: Yes Spontaneous unlabored respirations: Yes nausea: No Vomiting: No Anesthesia Complication: No Fluid Hydration Crystalloid volume administer (ml): 300 Total IV fluid infused: 300 Progress Note Anesthesia document: Postop Eval 1 completed: Yes
--- NOTE | 2025-08-22 14:57 | POSTOPAN2_ITS ---
Anesthesia Postop Eval I Sum Postop Eval Completion status Anesthesia document: Postop Eval 1 completed: Yes Anesthesia Postop Eval I Summary Anesthesia Postop Eval I Summary: Anesthesia Postop Eval I: Assessment Summary Airway patent Yes 08/22/25 13:35 [email or web address] [email or web address] Spontaneous unlabored Yes 08/22/25 13:35 [email or web address] [email or web address] respirations Mental status nausea No 08/22/25 13:35 [email or web address] Vomiting No 08/22/25 13:35 [email or web address] [email or web address] Anesthesia Postop Eval I: Fluid Summary Crystalloid volume administer 300 08/22/25 13:35 [email or web address] [email or web address] (ml) Colloids volume administered ( ml) Blood Product volume administered (ml) Total IV fluid infused 300 08/22/25 13:35 [email or web address] [email or web address] Anesthesia Postop Eval I: Summary Notes Anesthesia Complication No 08/22/25 13:35 [email or web address] Anesthesia Complication Comment: Post-operative progress note Anesthesia: Postop Eval II Evaluation Mental status: Awake and Calm Pain Level: 0 nausea: No Vomiting: No Complications Anesthesia Complication: No
--- NOTE | 2025-08-22 14:57 | PCM.POSTANE2 ---
Anesthesia Postop Eval I Sum Postop Eval Completion status Anesthesia document: Postop Eval 1 completed: Yes Anesthesia Postop Eval I Summary Anesthesia Postop Eval I Summary: Anesthesia Postop Eval I: Assessment Summary Airway patent Yes 08/22/25 13:35 [email or web address] Spontaneous unlabored Yes 08/22/25 13:35 [email or web address] respirations Mental status nausea No 08/22/25 13:35 [email or web address] Vomiting No 08/22/25 13:35 [email or web address] Anesthesia Postop Eval I: Fluid Summary Crystalloid volume administer 300 08/22/25 13:35 [email or web address] (ml) Colloids volume administered ( ml) Blood Product volume administered (ml) Total IV fluid infused 300 08/22/25 13:35 [email or web address] Anesthesia Postop Eval I: Summary Notes Anesthesia Complication No 08/22/25 13:35 [email or web address] Anesthesia Complication Comment: Post-operative progress note Anesthesia: Postop Eval II Evaluation Mental status: Awake and Calm Pain Level: 0 nausea: No Vomiting: No Complications Anesthesia Complication: No
== END 2025-08-22 14:29 | disposition home or self-care (01) ==
LOC: SDC 11:33 → AC 12:08
PROVIDERS: PCP Internal Medicine; Referring Provider Anesthesiology Pain Medicine; Visit Provider Anesthesiology Pain Medicine
PROC: 3E0S3BZ Introduction of Anesthetic Agent into Epidural Space, Percutaneous Approach (ICD-10-PCS; CPT 62282; principal; 2025-08-22 13:25)
DX: M51.17 Intervertebral disc disorders with radiculopathy, lumbosacral region (principal); M48.07 Spinal stenosis, lumbosacral region; I10 Essential (primary) hypertension; Z79.899 Other long term (current) drug therapy
CPT/HCPCS: 62323; 01992; 64483; 77003